=== PATIENT | male | born 1980 | race Caucasian/White ===

== ENCOUNTER 2023-09-28 | Outpatient (REF) | payer MEDICAID, SELFPAY | END 2023-09-28 00:01 | disposition home or self-care (01) | LOC: HO.HHCLNP | PROVIDERS: Visit Provider Family Medicine | DX: R31.9 Hematuria, unspecified (principal) | CPT/HCPCS: 87086 ==

== ENCOUNTER 2023-11-07 01:53 | Emergency (ER) | payer MEDICAID, SELFPAY ==
--- NOTE | 2023-11-07 | ECG_ITS ---
Test Reason : CHEST PX Blood Pressure : / mmHG Vent. Rate : 078 BPM Atrial Rate : 078 BPM P-R Int : 152 ms QRS Dur : 086 ms QT Int : 392 ms P-R-T Axes : 056 046 039 degrees QTc Int : 446 ms Normal sinus rhythm Normal ECG When compared with ECG of 07-OCT-2011 01:04, Sinus rhythm has replaced Ectopic atrial rhythm T wave inversion no longer evident in Inferior leads Referred By: Generic ED Physician Electronically Signed By:MAYRA PEREZ
--- NOTE | ~2023-11-07 | XR_ITS ---
EXAMINATION: XR CHEST CLINICAL INFORMATION: Chest pain COMPARISON: None available. TECHNIQUE: 2 views of the chest were obtained. FINDINGS: The lungs are clear with no focal consolidation. No evidence of pneumothorax, pulmonary edema, or pleural effusions. The cardiomediastinal silhouette is unremarkable. No acute osseous findings. XR/XR chest 2V IMPRESSION: No acute cardiopulmonary findings.
[2023-11-07 02:05] VITALS: BP 139/75; PULSE 82; RESP 18; TEMP 36.6; O2SAT 97; BMI 28.1
[2023-11-07 02:11] LABS: MANUAL DIFF FLAG NO
[2023-11-07 02:13] LABS: Basophils Absolute Auto 0.1 X10*3/uL (0.0-0.2); Basophils Percent Auto 0.5 % (0-2); Eosinophils Absolute Auto 0.1 X10*3/uL (0.0-0.4); Eosinophils Percent Auto 1.1 % (0-4); Hematocrit 41.7 % (42.0-52.0); Hemoglobin 14.1 g/dl (14.0-18.0); Imm Gran Abs Auto 0.05 X10*3/uL (0.00-0.03); Imm Gran Pct Auto 0.4 % (0.0-0.4); Lymphocytes Absolute Auto 2.7 X10*3/uL (1.2-4.9); Lymphocytes Percent Auto 21.2 % (20-40); Mean Corpuscular HGB Conc 33.8 g/dl (31.0-36.0); Mean Corpuscular Hemoglobin 29.4 pg (27.0-33.0); Mean Corpuscular Volume 87.1 fL (80.0-98.0); Mean Platelet Volume 10.1 fL (9.4-12.4); Monocytes Absolute Auto 0.7 X10*3/uL (0.1-1.2); Monocytes Percent Auto 5.8 % (2-11); Platelet Count 249 X10*3/uL (160-400); Red Blood Count 4.79 X10*6/uL (4.60-5.80); Red Cell Distribution Width 12.6 % (11.0-16.0); White Blood Count 12.7 X10*3/uL (4.8-10.8)
[2023-11-07 02:33] LABS: Troponin-I High Sensitivity < 2.7 ng/L (<3.5-35.0)
[2023-11-07 02:41] LABS: Alanine Aminotransferase 17 U/L (0-40); Albumin Level 4.4 g/dL (3.5-5.0); Alkaline Phosphatase 75 U/L (39-117); Anion Gap 15 (12-20); Aspartate Amino Transferase 23 U/L (5-37); Bilirubin Total 0.6 mg/dL (0.0-1.0); Blood Urea Nitrogen 13 mg/dL (9-16); Calcium 9.6 mg/dL (8.4-10.2); Carbon Dioxide 24 mmol/L (22-29); Chloride 108 mmol/L (96-108); Estimated Glomerular Filt Rate > 60; Glucose Random 93 mg/dL (60-115); Potassium 3.6 mmol/L (3.3-5.1); Sodium 143 mmol/L (135-145); Total Protein 7.3 g/dL (6.5-8.0)
[2023-11-07 07:07] VITALS: BP 119/79; PULSE 64; RESP 20; TEMP 36.5; O2SAT 98
--- NOTE | 2023-11-07 08:26 | PC.NURSE ---
Repeat troponin collected per EDTA and sent to lab. Pt states he called to make a complaint and called a law firm regarding his experience here. Pt also states that he will be leaving shortly.
[2023-11-07 08:58] LABS: Troponin-I High Sensitivity < 2.7 ng/L (<3.5-35.0)
== END 2023-11-07 09:19 | disposition left against medical advice (07) ==
PROVIDERS: Emergency Provider Emergency Medicine
DX: R07.9 Chest pain, unspecified (principal); Z53.21 Procedure and treatment not carried out due to patient leaving prior to being seen by health care provider
CPT/HCPCS: 36415; 71046; 80053; 84484; 85025; 93005; 99281; 99283

== ENCOUNTER → 2023-11-07 01:56 | Outpatient (BNV) | payer MEDICAID, SELFPAY | PROVIDERS: Emergency Provider Emergency Medicine; Visit Provider Internal Medicine | DX: R07.9 Chest pain, unspecified (principal) | CPT/HCPCS: 93010 ==

== ENCOUNTER 2023-12-27 01:14 | Emergency (ER) | payer MEDICAID, SELFPAY ==
[2023-12-27 01:18] VITALS: BP 127/73; PULSE 85; RESP 18; TEMP 36.4; O2SAT 96; BMI 28.2
--- NOTE | 2023-12-27 01:26 | ED_ITS ---
HPI - Back Pain/Injury General Chief Complaint: Back Pain/Injury Stated Complaint: Upper Back Pain Time Seen by Provider: 12/27/23 01:25 Source: patient Mode of arrival: ambulatory Limitations: no limitations History of Present Illness ED Provider: MARYLU MCCRAY Narrative: 43 yo male healthy hx of low back pain not on thinners was at work lifting 40lb boxes over his head for 1 hour now has pain and pinching in upper back no numbness, weakness no other injury. back is tight MD elicited complaint: back pain and back injury Pertinent past history: prior back pain Onset (ago): hour(s) (1) Timing: constant Severity: moderate Similar Symptoms Previously: No Quality: burning, sharp and dull Location: thoracic spine (lower cervical ) Radiation: none Exacerbating factors: movement Relieving factors: none Context: while lifting Associated symptoms: denies other symptoms Work related injury: Yes Related Data Previous Rx's ?Medication ?Instructions ?Recorded cyclobenzaprine 10 mg tablet 10 mg PO TID PRN muscle spasm #20 12/27/23 tabs lidocaine 5 % topical patch 1 patch topical DAILY #30 ea 12/27/23 Allergies Allergy/AdvReac Type Severity Reaction Status Date / Time No Known Allergies Allergy Verified 12/27/23 01:19 Review of Systems Review of Systems: Constitutional : No Weight loss, No Fever, No Chills, ENT/Mouth : No Hearing loss, No Ear Pain, No Nasal Congestion, No Sinus Pain, No Hoarseness, No sore throat, No Rhinorrhea, No Swallowing Difficulty Cardiovascular : No Chest Pain, No SOB Respiratory : No Cough, No Dyspnea Gastrointestinal : No Nausea, No Vomiting, No Diarrhea, No abdominal Pain, No Hematochezia, No Melena Genitourinary : No Dysuria, No Urinary Frequency, No Hematuria, No Urinary Incontinence, Musculoskeletal : positive back pain Skin : No Skin Lesions, No rash Neuro : No Weakness, No Numbness, No Paresthesias, no loss of bowel or bladder incontinence, no saddle anesthesia all other systems reviewed and are negative [facility] Past Medical History Attestation statement: The following information was validated with the patient. Source: old records reviewed Medical History Low back pain Social History Social History (Updated 12/27/23 @ 01:29 by Rianna Marylu, DO) Patient Tobacco Use Status: Tobacco use Unknown Physical Exam Vital Signs: Vital Signs: Last Vital Signs Temp 97.6 F 12/27/23 01:18 Pulse 85 12/27/23 01:18 Resp 18 12/27/23 01:18 BP 127/73 12/27/23 01:18 Pulse Ox 96 12/27/23 01:18 O2 Del Method Room Air 12/27/23 01:18 BMI result Body Mass Index 28.2 Appearance: Alert. Oriented X3. No acute distress. Eyes: Pupils equal, round and reactive to light. ENT: Pharynx normal. Neck: Normal inspection. Neck supple. Back: upper thoracic spasm - both UE NV intact SILT and 2+ radial pulse good development and housing director CVS: Normal heart rate and rhythm. Pulses normal. Respiratory: No respiratory distress. Breath sounds normal. Abdomen: Soft and nontender. Skin: Skin warm and dry. Normal skin color. Normal skin turgor. Extremities: No lower extremity edema. Neuro: Oriented X 3. No motor deficit. No sensory deficit. Medical Decision Making Medical Decision Making MDM Narrative: 43 yo male with pinching and pain in middle of thoracic back at this time NV intact no midline ttp or step offs will start on NSAIDs and flexeril doubt fracture seems spasm and strain. Not toxic. Differential Diagnosis Differential Diagnoses: The differential diagnosis associated with the presentation includes strain, spasm External Record Review External record reviewed: Outpatient record Prescription Management I considered prescription management with: Pain Medication and Other Discharge Plan Discharge Clinical Impression: Cervical muscle strain Qualifiers: Encounter type: initial encounter Qualified Code(s): S16.1XXA - Strain of muscle, fascia and tendon at neck level, initial encounter Patient Disposition: Home, Self-Care Instructions: Cervical Strain (ED) Additional Instructions: return for numbness, weakness, cold blue hands or any other concerns alternate tylenol and motrin for pain Prescriptions: New cyclobenzaprine 10 mg tablet 10 mg PO TID PRN (Reason: muscle spasm) Qty: 20 0RF lidocaine 5 % adhesive patch,medicated 1 patch topical DAILY Qty: 30 0RF Rx Instructions: leave on most painful area for up to 12 hrs Stand Alone Forms: Work/School Release Print Language: Pakistani
[2023-12-27] MEDS: Cyclobenzaprine HCl 10 MG TABLET PO (01:50)
[2023-12-27] MEDS: Lidocaine 4 % Patch ADH..PATCH 1 PATCH TRANSDERMA (01:50)
[2023-12-27] MEDS: Ibuprofen 600 MG TABLET PO (01:50)
[2023-12-27 02:39] VITALS: BP 136/78; PULSE 68; RESP 18; TEMP 36.8; O2SAT 99
== END 2023-12-27 01:55 | disposition home or self-care (01) ==
PROVIDERS: Emergency Provider Emergency Medicine
DX: M54.2 Cervicalgia (principal); M54.6 Pain in thoracic spine
CPT/HCPCS: 99283

== ENCOUNTER 2024-07-07 23:38 | Emergency (ER) | payer MEDICAID, SELFPAY ==
--- NOTE | ~2024-07-07 | XR_ITS ---
CLINICAL HISTORY: fall, Lt ankle pain 3 views left ankle Comparison: None Findings: There is no fracture or dislocation. Joint spaces appear normal. Impression: Unremarkable left ankle radiographs. This document has been electronically signed by: Pacheco Mcmillan MD on 07/08/2024 01:21:49
--- NOTE | ~2024-07-07 | XR_ITS ---
CLINICAL HISTORY: fall, low back pain tenderness 3 views lumbar spine Comparison: 09/23/2016 11:20 AM EDT: CR: LUMBAR SPINE 2TO 3 [id number] (10:20 AM CDT) Findings: Alignment is normal. Vertebral body heights are normal. No fracture is seen. There is mild L5-S1 degenerative disc disease. Impression: No acute findings. This document has been electronically signed by: Pacheco Mcmillan MD on 07/08/2024 01:39:01
[2024-07-07 23:45] VITALS: BP 128/80; PULSE 94; RESP 16; TEMP 36.6; O2SAT 97; BMI 33.0
--- NOTE | 2024-07-08 00:19 | ED_ITS ---
HPI - General Adult General Chief complaint: Back Pain/Injury Stated complaint: lower back pain Time Seen by Provider: 07/08/24 00:19 History of Present Illness ED Provider: Ar MCCRAY narrative: The patient is a 44-year-old male who was walking on a sidewalk when he slipped on ice. He says that at 1st he fell forward and twisted his left ankle and struck his right forehead. He says he did not fall all the way onto the ground however. He tried to push himself up but then fell backwards onto his buttocks and injured his back. He had no loss of consciousness. He has had no nausea or vomiting. He does not have any significant amount of pain with moving his neck and he does not think he significantly injured his neck. He has no numbness, tingling, burning in his extremities. His chief complaint is in his low back. His secondary complaint is his left ankle. His other complaint is some soft tissue swelling to the right temporal region where he hit his head. Related Data Previous Rx's ?Medication ?Instructions ?Recorded cyclobenzaprine 10 mg tablet 10 mg PO TID PRN muscle spasm #20 12/27/23 tabs lidocaine 5 % topical patch 1 patch topical DAILY #30 ea 12/27/23 ibuprofen 400 mg tablet 400 mg PO Q6H PRN pain #14 tabs 07/08/24 Allergies Allergy/AdvReac Type Severity Reaction Status Date / Time opium poppy Allergy Severe Anaphylaxis Verified 07/07/24 23:52 Review of Systems Review of Systems: Yes all other systems are reviewed and are negative [facility] Past Medical History Medical History Low back pain Social History Social History (Updated 12/27/23 @ 01:29 by Rianna Valero DO) Patient Tobacco Use Status: Tobacco use Unknown Advance Directives: No Advance Directives Information Provided: No Do you have a plan to hurt others: No Plan Physical Exam ED Vital Signs: Vital Signs - 24 hr 07/07/24 23:45 Temperature 97.9 F Pulse Rate 94 Respiratory Rate 16 Blood Pressure 128/80 Pulse Oximetry 97 Oxygen Delivery Method Room Air BMI result Body Mass Index 33.0 Const Other: The patient is awake and alert. He looks mildly uncomfortable. He does not seem in acute distress. HENMT Other: There is an area of soft tissue swelling near the anterior portion of the right temporal fossa. Skin is intact. No raccoon eyes. No downing sign. No hemotympanum. Eyes General: appearance normal, both eyes and all related structures Alignment and Position: alignment normal Eyelids: Yes eyelids normal Conjunctivae: conjunctivae normal Sclerae: sclerae normal Pupils: Equal, round and reactive pupils present EOM: EOMs intact bilaterally Neck Other: No significant posterior C-spine tenderness. Moving his neck with a good range of motion without significant discomfort. His C-spine is clinically clear. Resp Effort & Inspection: normal respiratory effort Auscultation: clear to auscultation bilaterally Cardio Rate: regular rate Rhythm: regular rhythm Heart sounds: S1 normal heart sound present and S2 normal heart sound present GI Other: Abdomen is soft and nontender Skin Other: There is a small area of soft tissue swelling to the right lateral forehead at the anterior portion of the right temporal fossa. Skin is intact. No ecchymotic skin changes. The skin of the left ankle is not significantly swollen or discolored. Neuro Other: The patient is awake and alert with a normal mental status. Cranial nerves 2-12 are intact. He has normal strength and sensation in his extremities. Cranial nerves: Yes Equal, round and reactive pupils present Extrem Other: The patient has a mild generalized tenderness to the left ankle which is maximal over the lateral malleolus. No gross deformity. Medications Administered Discontinued Medications Generic Name Dose Route Start Last Admin Trade Name Freq PRN Reason Stop Dose Admin Ketorolac Tromethamine 30 mg 07/08/24 00:35 07/08/24 00:42 Ketorolac Tromethamine 30 Mg/Ml Vial IM 07/08/24 00:36 30 mg ONCE ONE Administration Medical Decision Making Medical Decision Making [facility] Narrative: The patient presents for evaluation of injuries he sustained when he slipped on an icy sidewalk. He says he 1st fell forward landing on his hands but twisting his left ankle and also hitting his right forehead. He then tried to push himself upright but then fell backward landing on his buttocks injuring his lower back. He has a negative ankle x-ray. Unremarkable lumbar x-ray. He was given a dose of IM ketorolac for pain. I explained to the patient that he does not seem to have any lumbar fractures. Additionally I explained he does not have an ankle fracture but probably has a mild ankle sprain. He was offered an Aircast and he was offered crutches but he does not wish to have any these devices. He will be advised to rest and take it easy and stay off his feet. Discharge Plan Discharge Clinical Impression: Lumbar back sprain, Mild sprain of left ankle, Contusion of forehead, Fall Patient Disposition: Home, Self-Care Instructions: Ankle Sprain (ED), Low Back Strain (ED) Additional Instructions: Please try to rest and take it easy for the next several days. As much as you can try to stay off your feet and elevate your left leg. Using an ice pack to your left ankle for about 5 or 10 minute several times a day may be helpful. Use ibuprofen and acetaminophen as needed for pain. Please follow up with your regular doctor next week. Return to the emergency room if significantly worse. Prescriptions: New ibuprofen 400 mg tablet 400 mg PO Q6H PRN (Reason: pain) Qty: 14 0RF No Action cyclobenzaprine 10 mg tablet 10 mg PO TID PRN (Reason: muscle spasm) Qty: 20 0RF lidocaine 5 % adhesive patch,medicated 1 patch topical DAILY Qty: 30 0RF Rx Instructions: leave on most painful area for up to 12 hrs Referrals: [facility] [Provider Group] (Fall, forehead contusion, back strain, mild ankle sprain) Print Language: Irish
[2024-07-08] MEDS: Ketorolac Tromethamine 30 MG/ML VIAL IM (00:42)
--- OUTSIDE RECORDS SUMMARY | 2024-07-08 00:43 | XMS_ITS | Encounter Summary ---
Author Organization [employer] Address [address] [place] [address] Care Team Providers Care Tire Room Supervisor Name Role Phone Radha Weller MD Primary Care Provider + Fay Hensley MD Primary Care Provide r Encounter Details Date Type Department Care Team ([facility] st Contact Info) Description 06/09/2023 Orders [facility] Health Information Management [address] [place] [address] Radha Weller MD [address] [place] [address] Social History Tobacco Use Types Packs/Day Years Used Date Smoking Tobacco: Never Passive Smoke Exposure: Never Smokeless Tobacco: Never Alcohol Use Standard Drinks/Week Comments Never 0 (1 standard drink = 0.6 oz pur e alcohol) Sex and Gender Information Value Date Recorded Sex Assigned at Male 04/06/2022 10:17 AM EDT Legal Sex Male 10:17 AM EDT Gender Identity Male 04/06/2022 10:17 AM EDT Sexual Orientation Straight 04/06/2022 10 :17 AM EDT documented as of this encounter Plan of Treatment Not on file documented as of this encounter Visit Diagnoses Not on filedocumented in this encounter Care Teams Tire Room Supervisor Relationship Specialty Start Date End Date Radha Weller MD [address] [place] [id number] PCP - General Family Medicine 05/18/16 10/25/23 Fay Hensley MD [address] [place] [address] PCP - General Internal Medicine 10/26/23 documented as of this encounter
--- OUTSIDE RECORDS SUMMARY | 2024-07-08 00:43 | XMS_ITS | Clinical Summary ---
Author Organization [employer] Address [address] [place] [address] Care Team Providers Care Sales Office Administrator Name Role Phone Fay Hensley MD Primary Care Provide r Allergies No known active allergies Medications Respiratory Therapy Supplies (Nebulizer/Tubin g/Mouthpiece) kitIndications:M oderate persistent asthma without complication Use with nebulizer machine for albuterol 1 kit 1 2 Active Nebulizer miscIndications: Moderate persistent asthma without complication Use with albuterol every 4-6 hours as needed 1 each 2 Active albuterol 0.63 MG/3ML nebulizer solutionIndicati ons:Moderate persistent asthma with acute exacerbation Take 3 mL (0.63 mg) by nebulization every 6 (six) hours if needed for wheezing. 75 mL 11 3 Active albuterol 108 (90 Base) MCG/ACT inhalerIndicatio ns:Moderate persistent asthma with acute exacerbation Inhale 2 puffs every 4 (four) hours if needed for wheezing. 18 g 11 3 Active Active Problems Problem Noted Date Diagnosed Date Anxiety about health 10/11/2023 Assessment & Plan (10/11/2023 12:41 PM EDT): Expresses concern to resolve these issues that he links to pesticide exposure in the past and became agitated and verbally threatening. He declined consult with counselor to help him with this anxiety so that I could get more information about his health conditions. He didn't want to give me a release of information to obtain previous tests and evaluations that have been done at the hosptials/clinics in the past, he states that I should look in the internet (EHR? ). He refused to give me his state trooper's information, I explained that I could probably find more specific information about his chief complaint and work it out from there. I suggested that he could talk to his state trooper abut this specific round up specialist and do it on his side while I was working out all his complaints or would obtain more information from previous w/u to do a referral to specific specialist. Patient became significantly agitated and verbally threatening me (that he will report me or garth me) as I didn't comply with his request, again, without specifics about his condition. He expressed his frustration at not getting his request approved at this time and tells me that he wants to see someone more competent. Team nurse supervisor fiberglass boat assembly is called to further determine POC and future appoitments. Hemoptysis 10/11/2023 Assessment & Plan (10/11/2023 12:46 PM EDT): A previous CXR on 2018 showed low lung volumes, otherwise normal, no report of TB testing. I need further infor from previous records. Patient refused to provide CAROLE form. Needs further evaluation, patient declines for further testing. Weight loss 10/11/2023 Assessment & Plan (10/11/2023 12:53 PM EDT): He had lost about 15 lb within the past 6-7 m, but it seems that he's gaining them again for the past few weeks. FU weight in future visit. Hematuria 10/11/2023 Assessment & Plan (10/11/2023 12:46 PM EDT): Present on previous UA, needs urine cytology and renal imaging. I need further infor from previous records. Patient refused to provide CAROLE form. Needs further evaluation, patient declines for further testing. Gastrointestinal hemorrhage with melena 10/11/19 Assessment & Plan (10/11/2023 12:54 PM EDT): Unable to do a full exam today. I need further infor from previous records. Patient refused to provide CAROLE form. Needs further evaluation, patient declines for further testing. Elevated blood pressure reading 10/11/2023 Assessment & Plan (10/11/2023 12:56 PM EDT): No hx in the past. Patient states that it is related to current anxiety state, declined a second reading in the mid of visit, declined further testing including UA, EKG. FU at next visit, Will obtain previous records. Dyspnea 06/03/2023 06/03/2023 Microscopic hematuria 06/03/2023 06/03/2023 Primary insomnia 06/03/2023 06/03/2023 Chronic low back pain 08/12/2016 06/03/2023 Posttraumatic stress disorder 08/12/2016 Substance abuse 08/12/2016 06/03/2023 Anxiety state 11/17/2011 06/03/2023 Asthma 11/17/2011 06/03/2023 Contact dermatitis 11/17/2011 06/03/2023 Immunizations Name Administration Dates Next Due DTP 12/05/1986, 6,11/06/1983,1982,1982 Hep B, Adolescent or Pediatric 04/02/1998,1996,01/10/1997 Influenza, IIV3, injectable 04/19/1998 Influenza, Split (incl. angely fied surface antigen) 06/15/2013,04/19/1998 Eric SARS-CoV-2 Vaccination 10/18/2020 MMR 03/11/1994,11/06/1983 OPV 12/05/1986, 6,11/06/1983,1982,1982 Td (adult), 5 Lf tetanus tox oid, preservative free, adsorbed 03/31/1996 Tdap 06/03/2014 Social History Tobacco Use Types Packs/Day Years Used Date Smoking Tobacco: Former Cigarettes Passive Smoke Exposure: Past Smokeless Tobacco: Never Tobacco Cessation:Counseling Given: Not Answered Alcohol Use Standard Drinks/Week Comments Never 0 (1 standard drink = 0.6 oz pur e alcohol) Alcohol Answer Date Recorded Frequency of Alcohol Consumption Not on file 10/07/2023 Average Number of Drinks Not on file 024 Frequency of Binge Drinking Not on file 07/2023 Score 0 10/07/2023 Depression Answer Date Recorded Patient Health Questionnaire-9 Score 7 10/07/2023 Patient Health Questionnaire-9 Score 7 10/07/2023 Last PHQ-9: Questionnaire Data Not on file 0 10/07/2023 Housing Stability Answer Date Recorded What is your housing situation today? I have romero morocho 10/07/[address] you li ve. Do you have problems with any of the following? I am not sure 10/07/2023 Food Insecurity Answer Date Recorded Within the past 12 months, y ou worried that your food would run out before you got money to buy more: Sometimes True 2023 Within the past 12 months,th e food you bought just didn't last and you didn't have enough money to get more: Sometimes True 10/07/2023 Transportation Answer Date Recorded In the past 12 months, has l ack of transportation kept you from medical appts, meetings, work or from getting things needed for daily living? Yes, it has kept me from medical appointments or getting medications. 10/07/2023 Utilities Answer Date Recorded In the past 12 months, has t he electric, gas, oil or water company threatened to shut off services in your home? I am not sure 10/07/2023 Depression Answer Date Recorded Patient Health Questionnaire-2 Score 2 10/07/2023 Sex and Gender Information Value Date Recorded Sex Assigned at Male 04/06/2022 10:17 AM EDT Legal Sex Male 10:17 AM EDT Gender Identity Male 04/06/2022 10:17 AM EDT Sexual Orientation Straight 04/06/2022 10 :17 AM EDT Last Filed Vital Signs Vital Sign Reading Time Taken Comments Blood Pressure 114/87 10/25/2023 5:25 PM EDT Pulse 75 10/25/2023 5:25 PM EDT Temperature 36.8 ??C (98.2 ??F) 10/25/2023 5:25 PM ED T Respiratory Rate 20 10/25/2023 5:25 PM EDT Oxygen Saturation 97% 10/25/2023 5:25 PM EDT Inhaled Oxygen Concentration - - Weight 87.8 kg (193 lb 9.6 oz) 10/25/2023 5:25 P M EDT Height 177.8 cm (5' 10 ) 10/25/2023 5:25 PM EDT Body Mass Index 27.78 10/25/2023 5:25 PM EDT Plan of Treatment Health Maintenance Due Date Last Done Comments Lipid Panel 1982 Family Planning (PISQ) 1997 Pneumococcal Vaccine: Pediatrics (0 to 5 Years) and At-Risk Patients (6 to 49) Years) (1 of 2 - PCV) 2001 COVID-19 Vaccine (2 - season) 2024 10/18/2020 Influenza Vaccine (#1) 2024 4, 04/19/1998, 04/19/1998 DTaP/Tdap/Td Vaccines (7 - Td or Tdap) 06/03/2024 06/03/2014, 03/31/1996, 12/05/1986, Additional history exists Alcohol/Substance Use Screening 10/06/2024 10/07/2023 Depression Screening 10/06/2024 10/07/2023, 10/07/19 24 SDOH Screening 10/06/2024 10/07/2023 Tobacco Screening 10/24/2024 10/25/2023 Zoster Vaccines (1 of 2) 2032 RSV Patients and Patients Aged 60 years or older (1 - 1-dose 75+ series) 2057 IPV Vaccines Completed 12/05/1986, 06/1985, 11/06/1983, Additional history exists Hepatitis B Vaccines Completed 04/02/1998, 03/12/1997, 01/10/1997 HIV Screening Completed 01/13/2023 Hepatitis C Screening Completed 01/13/2023 HIB Vaccines Aged Out No longer eligi ble based on patient's age to complete this topic HPV Vaccines Aged Out No longer eligi ble based on patient's age to complete this topic Hepatitis A Vaccines Aged Out No long er eligible based on patient's age to complete this topic Meningococcal Vaccine Aged Out No ventura adeola eligible based on patient's age to complete this topic RSV under 20 months Aged Out No longe r eligible based on patient's age to complete this topic Rotavirus Vaccines Aged Out No longer eligible based on patient's age to complete this topic Procedures Procedure Name Priority Date/Time Associated Diagnosis Comments HM HEPATITIS C ANTIBODY Routine 01/13/2023 HM HIV 1/2 ANTIGEN AND ANTIBODY Routine 01/13/2023 from Last 3 Months or Most Recently Relevant to Health Maintenance Results * HM Hepatitis C Antibody (01/13/2023) Hepatitis C Antibody Nonreactive Blood 01/13/2023 Radha Weller MD HEALTH MAINTENANCE Final Result * HM HIV 1/2 Antigen and Antibody (01/13/2023) HIV Ag/Ab Nonreactive 01/13/2023 Radha Weller MD HEALTH MAINTENANCE Final Result from Last 3 Months or Most Recently Relevant to Health Maintenance Insurance [facility] C3 Care Teams Sales Office Administrator Relationship Specialty Start Date End Date Fay Hensley MD [address] [place] [id number] PCP - General Internal Medicine 10/26/23
[2024-07-08 01:57] VITALS: BP 149/89; PULSE 78; RESP 16; TEMP 36.4; O2SAT 96
[2024-07-08 01:59] VITALS: BP 149/89; PULSE 78; RESP 16; TEMP 36.4; O2SAT 96
== END 2024-07-08 02:00 | disposition home or self-care (01) ==
PROVIDERS: Emergency Provider Emergency Medicine
DX: S33.5XXA Sprain of ligaments of lumbar spine, initial encounter (principal); S93.402A Sprain of unspecified ligament of left ankle, initial encounter; S00.83XA Contusion of other part of head, initial encounter; W00.0XXA Fall on same level due to ice and snow, initial encounter; Y93.01 Activity, walking, marching and hiking; Y92.480 Sidewalk as the place of occurrence of the external cause; Y99.9 Unspecified external cause status
CPT/HCPCS: 72100; 73610; 96372; 99284; J1885

== ENCOUNTER → 2024-07-08 00:35 | Outpatient (BNV) | payer MEDICAID, SELFPAY | PROVIDERS: Emergency Provider Emergency Medicine; Visit Provider Radiology Diagnostic Radiology | DX: M54.50 Low back pain, unspecified (principal); M25.572 Pain in left ankle and joints of left foot | CPT/HCPCS: 72100; 73610 ==

== ENCOUNTER 2024-09-12 09:22 | Outpatient (AMB) | payer MEDICAID, SELFPAY ==
[2024-09-12 09:23] VITALS: BP 133/79; PULSE 61; O2SAT 97; BMI 33.8
--- NOTE | 2024-09-12 09:23 | MHC.OFFVIS ---
Vital Signs 09/12/24 09:23 Height 5 ft 10 in Weight 235 lb 7.259 oz BMI 33.8 BP 133/79 Blood Pressure Location Lt brachial Position Sitting Pulse 61 Pulse Source Pulse Oximeter Pulse Oximetry (%) 97 Oxygen Delivery Method Room Air Intake Visit Reasons: Lipoma~ scalp, upper extremity Intake Note: Patient referred by pcp Dr. Sutherland for ? lipoma on scalp. Pt states he has one on his scalp,neck,and right arm. Patient c/o:pain on his scalp Allergies opium poppy Allergy (Severe, Verified 09/12/24 09:25) Anaphylaxis HPI Comments Details: Patient presents here with his mother. He has 3 lesions/lumps he would like to have evaluated. These involved 1. Right forehead 2. Right posterior triangle of the neck 3. Right volar aspect of the forearm. He has had these lumps/lesions indeterminate time. They are increasing in size, become more symptomatic. He would like to have them removed. He has no such lesions elsewhere. Chart was reviewed and patient evaluated. Patient has history of exposure to ?round up? and this carried us if these lesions are related to this. Patient denies any fever, chills, night sweats, weight loss. No prior radiation exposure. [facility] Medical History Low back pain Social History Patient Tobacco Use Status: Tobacco use Unknown Physical Exam Vital Signs: Last Vital Signs Pulse 61 09/12/24 09:23 BP 133/79 09/12/24 09:23 Pulse Ox 97 09/12/24 09:23 Oxygen Delivery Method Room Air 09/12/24 09:23 BMI result Body Mass Index 33.8 HEENT Other: 4 x 3 cm lipoma involving right upper lateral forehead. No other submandibular or anterior cervical adenopathy appreciated bilaterally. Patient has a roughly 2 x 1 cm posterior triangle deeply situated mass consistent with a lymph node. Chest Other: Chest sounds bilaterally, HS 1 in 2 GI Other: Abdomen is soft, benign. No groin adenopathy Extrem Other: Patient was a 3 x 2 cm mid right volar aspect forearm lipoma. Assessment & Plan Assessment & Plan (1) Multiple lipomas: Code(s): D17.9 - Benign lipomatous neoplasm, unspecified Category: Surgical (2) Lymph nodes enlarged: Code(s): R59.9 - Enlarged lymph nodes, unspecified Category: Surgical Plan Because of the number, size, location and depth of these various lesions, my current recommendation is to arrange for excision in an ambulatory surgical setting. Risks, benefits, alternatives of excision of the 3 masses were reviewed with the patient and included but not limited to bleeding, infection, recurrence, numbness, pain, scarring the patient wished to proceed. All questions answered. Arrangements were made for this on a day which is convenient for him. Medications: Discontinued cyclobenzaprine Discontinued Reason: Patient no longer taking 10 mg PO TID PRN 20 tabs 0RF muscle spasm lidocaine 5% leave on most painful area for up to 12 hrs Discontinued Reason: Patient no longer taking 1 patch topical DAILY 30 ea 0RF Coding Level of Care Code New Pt Level 5 (98765) Diagnoses Multiple lipomas D17.9 Lymph nodes enlarged R59.9
--- OUTSIDE RECORDS SUMMARY | 2024-09-12 10:27 | XMS_ITS | Clinical Summary ---
Author Organization [facility] it Address [address] [place] [address] Care Team Providers Care Director Mobile Name Role Phone Aruna Chowdary MD Primary Care Provider [phone]- [phone] Social History Tobacco Use Types Packs/Day Years Used Date Smoking Tobacco: Some Days Smokeless Tobacco: Never Alcohol Use Standard Drinks/Week Comments Yes 0 (1 standard drink = 0.6 oz pur e alcohol) Sex and Gender Information Value Date Recorded Sex Assigned at Not on file Legal Sex Male 8:27 AM EST Gender Identity Not on file Sexual Orientation Not on file Obstetrics History Plan of Treatment Health Maintenance Due Date Last Done Comments DTaP,Tdap,and Td Vaccines (1 - Tdap) 2001 Hepatitis B Vaccines (1 of 3 - 19+ 3-dose series) 2001 Pneumococcal Vaccine: Pediat rics (0 to 5 Years) and At-Risk Patients (6 to 64 Years) (1 of 2 - PCV) 2001 Cholesterol Screening (Lipid Panel) 05/10/2022 Depression Screening 05/10/2022 HIV Screening 05/10/2022 Hepatitis C Screening 05/10/2022 Social Influencers of Health Screening 05/10/2022 COVID-19 Vaccine ( - 2023-2 5 season) 2024 Influenza Vaccine (Season Ended) 2025 HIB Vaccines Aged Out No longer eligi ble based on patient's age to complete this topic HPV Vaccines Aged Out No longer eligi ble based on patient's age to complete this topic Hepatitis A Vaccines Aged Out No long er eligible based on patient's age to complete this topic IPV Vaccines Aged Out No longer eligi ble based on patient's age to complete this topic MMR Vaccines Aged Out No longer eligi ble based on patient's age to complete this topic Meningococcal ACWY Vaccine Aged Out N o longer eligible based on patient's age to complete this topic Meningococcal B Vaccine Aged Out No l onger eligible based on patient's age to complete this topic RSV Immunization Patients Un pito 20 months Aged Out No longer eligible b ased on patient's age to complete this topic Varicella Vaccines Aged Out No longer eligible based on patient's age to complete this topic Care Teams Director Mobile Relationship Specialty Start Date End Date Aruna Chowdary MD [address] [place] [phone] PCP - General Family Medicine 10/17/18
--- OUTSIDE RECORDS SUMMARY | 2024-09-12 10:28 | XMS_ITS | Clinical Summary ---
Author Organization [employer] Address [address] [place] [address] [address] [place] [address] Care Team Providers Care Nutrition Coordinator Name Role Phone Fay Hensley MD Primary [...] Problems Problem Noted Date Diagnosed Date Anxiety with depression 08/31/2024 Assessment & Plan (09/01/2024 9:39 AM EDT): Patient tells me he follows with a therapist in [facility] and that he also has a psychiatrist but he is not currently on any medications, reports he does not want to be on any medications for mental health at this time Dizziness 08/31/2024 Assessment & Plan (09/01/2024 9:38 AM EDT): Blood work will be ordered today patient will be contacted with results Lipoma of head 08/31/2024 Assessment & Plan (09/01/2024 9:39 AM EDT): Patient reports his labs bothers him a lot, sometimes he feels they are painful he would like for them to be excised and test, he will be referred to surgery Lipoma of neck 08/31/2024 Assessment & Plan (09/01/2024 9:40 AM EDT): Patient reports his labs bothers him a lot, sometimes he feels they are painful he would like for them to be excised and test, he will be referred to surgery Lipoma of upper extremity 08/31/2024 Assessment & Plan (09/01/2024 9:39 AM EDT): Patient reports his labs bothers him a lot, sometimes he feels they are painful he would like for them to be excised and test, he will be referred to surgery Right hand pain 08/31/2024 Assessment & Plan (09/01/2024 9:39 AM EDT): Patient will be referred to hand specialist Anxiety about health 10/11/2023 Assessment & Plan [...] evaluations that have been done at the [facility] in the past, he states that I should look in the internet (EHR? ). He refused to give me his hog raiser's information, I explained that I could probably find more specific information about his chief complaint and work it out from there. I suggested that he could talk to his hog raiser abut this specific round up specialist and [...] see someone more competent. Team nurse supervisor car installations is called to further determine POC and [...] future visit. Hematuria 10/11/2023 Assessment & Plan (09/01/2024 9:38 AM EDT): UA done today confirm hematuria, I will refer patient to urology Assessment & Plan (10/11/2023 12:46 PM EDT): Present on previous UA, needs urine cytology and renal imaging. I need further infor from previous records. Patient refused to provide CAROLE form. Needs further evaluation, patient declines for further testing. Gastrointestinal hemorrhage with melena 10/11/19 24 Assessment & Plan (10/11/2023 12:54 PM EDT): [...] Anxiety state 11/17/2011 06/03/2023 Asthma 11/17/2011 06/03/2023 Assessment & Plan (09/01/2024 9:38 AM EDT): Patient reports stable, continue with same interventions Contact dermatitis 11/17/2011 06/03/2023 Encounters Date Type Department Care Team Description 09/01/[address] [address] Fay Hensley MD Paperwork/Forms (DTA) 08/31/2024 3:30 PM EDT Office Visit [address] [address] Fay Hensley MD Moderate persistent asthma with acute exacerbation (Primary Dx); Hematuria, unspecified type; Chronic midline low back pain with left-sided sciatica; Anxiety with depression; Dizziness; Lipoma of head; Lipoma of neck; Lipoma of right upper extremity; Right hand pain 08/31/2024 Travel 08/22/2024 Patient Outreach [address] [address] Fay Hensley MD Pre-visit Planning ((Unable to reach for PVP screening, LVM)) 08/18/2024 Population Health Risk Score [facility] () Department [address] [place] [phone] Provider, Population Health Generic from Last 3 Months Immunizations Name Administration Dates Next Due DTP 12/05/1986, 6,11/06/1983,1982,1982 Hep B, Adolescent or Pediatric 04/02/1998,1996,01/10/1997 Influenza, IIV3, injectable 04/19/1998 Influenza, Split (incl. angely fied surface antigen) 06/15/2013,04/19/1998 Eric SARS-CoV-2 Vaccination 10/18/2020 MMR 03/11/1994,11/06/1983 OPV, Trivalent 12/05/1986, 6,11/06/1983,1982,1982 Td (adult), 5 Lf tetanus tox oid, preservative free, adsorbed 03/31/1996 Tdap 06/03/2014 Social History Tobacco Use Types Packs/Day Years Used Date Smoking Tobacco: Former Cigarettes Passive Smoke Exposure: Past Smokeless Tobacco: Never Tobacco Cessation:Counseling Given: Not Answered Alcohol Use Standard Drinks/Week Comments Never 0 (1 standard drink = 0.6 oz pur e alcohol) Depression Answer Date Recorded Patient Health Questionnaire-9 Score 24 08/31/2024 Patient Health Questionnaire-9 Score 24 08/31/2024 Last PHQ-9: Questionnaire Data Not on file 0 08/31/2024 Housing Stability Answer Date Recorded What is [...] Answer Date Recorded Patient Health Questionnaire-2 Score 6 08/31/2024 Sex and Gender Information Value Date Recorded Sex Assigned at Male 04/06/2022 10:17 AM EDT Legal Sex Male 10:17 AM EDT Gender Identity Male 04/06/2022 10:17 AM EDT Sexual Orientation Straight 04/06/2022 10 :17 AM EDT Last Filed Vital Signs Vital Sign Reading Time Taken Comments Blood Pressure 131/76 08/31/2024 2:55 PM EDT Pulse 60 08/31/2024 2:55 PM EDT Temperature 36.4 ??C (97.6 ??F) 08/31/2024 2:55 PM ED T Respiratory Rate 20 08/31/2024 2:55 PM EDT Oxygen Saturation 98% 08/31/2024 2:55 PM EDT Inhaled Oxygen Concentration - - Weight 106 kg (234 lb 9.6 oz) 08/31/2024 2:55 PM EDT Height 177.8 cm (5' 10 ) 08/31/2024 2:55 PM EDT Body Mass Index 33.66 08/31/2024 2:55 PM EDT Plan of Treatment Health Maintenance [...] history exists Alcohol/Substance Use Screening 10/06/2024 10/07/2023 SDOH Screening 10/06/2024 10/07/2023 Depression Monitoring (PHQ-9) 03/03/2025 08/31/2024, 08/31/2024 Depression Screening 08/31/2025 08/31/2024, 09/01/19 25 Tobacco Screening 08/31/2025 08/31/2024 Zoster Vaccines (1 of 2) 2032 RSV Patients and Patients Aged 60 years or older (1 - 1-dose 75+ series) 2057 IPV Vaccines Completed 12/05/1986, 02/0 06/1985, 11/06/1983, Additional history exists Hepatitis B [...] Procedure Name Priority Date/Time Associated Diagnosis Comments POCT URINALYSIS DIPSTICK Routine 08/31/2024 3:55 PM EDT Hematuria, unspecified type HM HEPATITIS C ANTIBODY Routine 01/13/2023 HM HIV 1/2 ANTIGEN AND ANTIBODY Routine 01/13/2023 from Last 3 Months or Most Recently Relevant to Health Maintenance Results * (ABNORMAL) POCT Urinalysis (08/31/2024 3:55 PM EDT) Color, UA Yellow Clarity, UA Clear Glucose, UA Negative Bilirubin, UA Negative Ketones, UA Negative Spec Grav, UA 1.025 Blood, UA Positive(A) Negative, None Detected Comment:moderate pH, UA 6.0 Protein, UA Trace Urobilinogen, UA 0.2 Leukocytes, UA Negative Negative, Rare, Trace Nitrite, UA Negative Negative, None Detected Appearance, UA clear Urine 08/31/2024 3:55 PM EDT Fay Dominguez MD POINT OF CARE TEST EN TER/EDIT ORDERABLES Final Result * HM Hepatitis C Antibody (01/13/2023) Hepatitis C Antibody Nonreactive Blood 01/13/2023 Radha Weller MD HEALTH MAINTENANCE Final Result * HM HIV 1/2 Antigen and Antibody (01/13/2023) HIV Ag/Ab Nonreactive 01/13/2023 Radha Weller MD HEALTH MAINTENANCE Final Result from Last 3 Months or Most Recently Relevant to Health Maintenance Insurance [facility] C3 Care Teams Nutrition Coordinator Relationship Specialty Start Date End Date Fay Hensley MD [address] [place] [id number] PCP - General Internal Medicine 10/26/23
--- OUTSIDE RECORDS SUMMARY | 2024-09-12 10:28 | XMS_ITS | Encounter Summary ---
Author Organization [employer] Address [address] [place] [address] [place] [address] Care Team Providers Care Training And Development Project Leader Name Role Phone Radha Weller MD Primary Care Provider + Fay Hensley MD Primary Care Provide r Encounter Details Date Type Department Care Team (Late st Contact Info) Description 06/09/2023 Orders Only [facility] [address] [place] [address] Radha Weller MD [address] [place], [place] [phone] Social History Tobacco Use Types Packs/Day Years [...] on filedocumented in this encounter Care Teams Training And Development Project Leader Relationship Specialty Start Date End Date Radha Weller MD [address] [place] [phone] PCP - General Family Medicine 05/18/16 10/25/23 Fay Hensley MD [address] [place] [address] PCP - General Internal Medicine 10/26/23 documented as of this encounter
== END 2024-09-12 09:34 | disposition home or self-care (01) ==
LOC: HO.HGS 09:22
PROVIDERS: PCP Internal Medicine; Referring Provider Internal Medicine; Visit Provider Surgery
DX: D17.0 Benign lipomatous neoplasm of skin and subcutaneous tissue of head, face and neck (principal); R59.9 Enlarged lymph nodes, unspecified
CPT/HCPCS: 99204

== ENCOUNTER → 2024-09-12 09:22 | Outpatient (BNVA) | payer MEDICAID, SELFPAY | PROVIDERS: PCP Internal Medicine; Referring Provider Internal Medicine; Visit Provider Surgery | DX: R59.9 Enlarged lymph nodes, unspecified (principal); D17.9 Benign lipomatous neoplasm, unspecified | CPT/HCPCS: 99202 ==

== ENCOUNTER 2024-11-06 08:42 | Outpatient (REF) | payer MEDICAID, SELFPAY ==
[2024-11-06 16:38] LABS: Urine Cytology See Pathology rpt
== END 2024-11-06 08:43 | disposition home or self-care (01) ==
LOC: HO.LNP 08:42
PROVIDERS: PCP Internal Medicine; Visit Provider Nurse Practitioner Family
DX: R31.29 Other microscopic hematuria (principal); F12.20 Cannabis dependence, uncomplicated
CPT/HCPCS: 81003; 88112; 99212

== ENCOUNTER 2024-11-06 08:42 | Outpatient (AMB) | payer MEDICAID, SELFPAY ==
--- NOTE | 2024-11-06 09:03 | A.OFFVIS_ITS ---
Intake Visit Reasons: hematuria Intake Note: New Patient presents for initial visit for Hematuria Urology Medications: none Blood Thinner: none Smoker:yes; smoked for 30+yrs, since age 14 Paint Technician Required: No Accompanied by: Unknown Allergies opium poppy Allergy (Severe, Verified 11/06/24 09:51) Anaphylaxis Medication List - Last Reconciled 11/06/24 by SALVADOR Peters albuterol sulfate 90 mcg/actuation 2 puffs inhalation Q4-6H PRN ibuprofen 400 mg PO Q6H PRN trazodone 100 mg PO BEDTIME HPI Comments Details: Abdulaziz is a 44-year-old male patient of Dr. Ena Dominguez who was accompanied by his mom at today's office visit. He has a past medical history of low-back pain. He presents to the office today as a new patient for microscopic hematuria. In discussion with the patient today he discusses having followed up with his PCP at which time recommendations were made for urology referral as patient with a longstanding history of microscopic hematuria in the setting of nicotine dependence, marijuana use, and previous workplace chemical exposure. He reports over 30 year marijuana use of daily smoking. He also reports previously working in [place] and having been exposed to ground up. In office urinalysis results reviewed with the patient and his mom today. Trace microscopic hematuria noted. We did discuss potential causes of microscopic hematuria as well as further workup to include CT urogram and cystoscopy. He otherwise denies any bothersome urinary issues. He does discuss his ongoing issues with various skin issues and will be having upcoming surgical appointment for removal of lumps. All questions were answered. I discussed reasons for blood in the urine may include but are not limited to kidney stones, cancer in the urinary tract, BPH, kidney stone disease or inflammatory conditions of the urinary tract. I have discussed workup to include cystoscopy evaluation. Plan During this consultation, I emphasized the need for diagnostic evaluation of the patient's hematuria. I recommended a CT urogram to examine the kidneys and bladder transparently. The patient is to procure recent imaging records to determine the necessity of further scans due to exposure concerns. A cystoscopy is advised for direct bladder examination, which we discussed at length. We will plan to review these diagnostic results during the follow-up. Patient was informed and verbally consented to the use of an ambient scribe for clinic note documentation during this visit. Discussion Notes The discussion centered on the patient's microscopic hematuria and associated risks due to his smoking history and chemical exposure at a former workplace. I elaborated on the role of smoking in increasing bladder cancer risk. We reviewed the necessity of a CT urogram to identify any abnormalities in the urinary tract, emphasizing careful consideration of cumulative radiation dosage. The importance and nature of a cystoscopy were discussed. The patient was encouraged to collect prior imaging records to ascertain if additional CT imaging is warranted. [facility] Medical History Low back pain Social History Patient Tobacco Use Status: Tobacco use Unknown Review of Systems Const All systems reviewed & are unremarkable except as noted in HPI and below Physical Exam Const General: cooperative, healthy appearing, comfortable, no acute distress, well developed, alert and awake Orientation/consciousness: patient oriented x3 Limitations: no limitations HEENT Head: Yes normal to inspection, Yes normocephalic and Yes atraumatic Ears: hearing grossly normal bilaterally Eyes General: appearance normal, both eyes and all related structures Neck Neck: Yes normal visual inspection and Yes trachea midline Chest Chest palpation & inspection: normal inspection of the chest Resp Effort & Inspection: normal respiratory effort and able to speak in complete sentences Cardio Rate: regular rate GI Inspection: Yes normal to inspection General: Yes no CVA tenderness Back/Spine/Pelvis Back: no CVA tenderness Skin General skin exam: no rashes or lesions noted Neuro General: patient oriented x3 Extrem General: Yes normal to inspection Psych Appearance: grossly normal and well kempt Mental Status: mental status grossly normal Speech and movement: Normal speech and movement present and Clear speech present Affect: normal affect Attitude: cooperative Thought process: Normal thought process present Thought content: Normal thought content present Insight: Fair insight present (Psych) Judgement: Fair judgement present (Psych) Results AMB Urinalysis, Automated UA Leukoctes 0 Jessica/uL Last Edit by Jaylen Bhatiaiel on 11/06/24 09:21 UA Nitrite Negative Last Edit by Jaylen Layne on 11/06/24 09:21 UA Urobilinogen 0.2 mg/dL Last Edit by Jaylen Layne on 11/06/24 09:21 UA Protein 15 mg/dL Last Edit by Jaylen aLyne on 11/06/24 09:21 UA pH 6.0 Last Edit by Jaylen Tillman on 11/06/24 09:21 UA Blood 10 Neri/uL Last Edit by Jaylen Layne on 11/06/24 09:21 UA Specific [place] 1.025 Last Edit by Jaylen Layne on 11/06/24 09:21 UA Ketone Negative Last Edit by Jaylendanica Bhatiaiel on 11/06/24 09:21 UA Bilirubin 0 mg/dL Last Edit by Jaylen Bhatiaiel on 11/06/24 09:21 UA Glucose 0 mg/dL Last Edit by Jaylen Bhatiaiel on 11/06/24 09:21 Results Reviewed Results Reviewed: Laboratory Last Values Urine pH (Auto) 6.0 11/06/24 09:04 Specific [place] (Auto) 1.025 11/06/24 09:04 Urine Protein (Auto) 15 mg/dL 11/06/24 09:04 Glucose (UA)(Auto) 0 mg/dL 11/06/24 09:04 Urine Ketones (Auto) Negative 11/06/24 09:04 Urine Blood (Auto) 10 Neri/uL 11/06/24 09:04 Urine Nitrite (Auto) Negative 11/06/24 09:04 Urine Bilirubin (Auto) 0 mg/dL 11/06/24 09:04 Urine Urobilinogen (Auto) 0.2 mg/dL 11/06/24 09:04 Leukocyte Esterase (Auto) 0 Jessica/uL 11/06/24 09:04 Assessment & Plan Assessment & Plan (1) Microscopic hematuria: Code(s): R31.29 - Other microscopic hematuria Category: Medical (2) Marijuana dependence: Code(s): F12.20 - Cannabis dependence, uncomplicated Category: Medical Plan In office urinalysis results reviewed with the patient today; as noted above; will send for urine cytology. We discussed at length potential causes of microscopic hematuria as well as further workup in risks and benefits of these interventions. He currently denies any bothersome urinary issues. Will obtain CT urogram for further assessment evaluation. BUN and creatinine ordered for imaging. We discussed the importance of limiting/quitting marijuana for overall health and well-being. Follow-up next available in office cystoscopy with imaging and labs to be completed prior; or sooner with any issues, concerns, and or questions. Orders: Orders AMB Urinalysis Automated Today Z13.9 - Encounter for screening, unspecified Urine Cytology Today R31.9 - Hematuria, unspecified Blood Urea Nitrogen Today R31.29 - Other microscopic hematuria Creatinine Today R31.29 - Other microscopic hematuria CT urogram Today F12.20 - Cannabis dependence, uncomplicated, R31.0 - Gross hematuria Patient Instructions: The patient had an opportunity to ask questions regarding the treatment plan. All questions were answered. Physical exam, labs, and imaging were discussed and reviewed in detail. As well as risks, benefits, and discussion of treatment choices. No major barriers to understanding were identified. The patient expressed understanding and agreement with the above treatment plan. The patient was made aware they should contact our office by phone for worsening of their current condition, the appearance of new symptoms, or with any questions or concerns. Compliance is encouraged with any medications and follow up testing that is ordered. It is a privilege to be allowed the opportunity to participate in? your urological care.? Again, if you have any questions or concerns If you have any questions or concerns please do not hesitate to contact me. The office is [phone]. This note is constructed using voice recognition software. While every effort has been made to ensure accuracy quality consultant errors may have been included. Yours sincerely, SALVADOR Peters Coding Level of Care Code New Pt Level 3 (86763) Diagnoses Microscopic hematuria R31.29 Marijuana dependence F12.20
--- OUTSIDE RECORDS SUMMARY | 2024-11-06 09:04 | XMS_ITS | Clinical Summary ---
Author Organization [facility] Address [address] [place] [address] Phone Care Team Providers Care Adolescent Specialist Name Role Phone Aruna Chowdary MD Primary Care Provider +1- [phone] Social History Tobacco Use Types Packs/Day Years [...] Health Maintenance Due Date Last Done Comments Hepatitis A Vaccines (1 of 2 - Risk 2-dose series) 2001 Pneumococcal Vaccine: Pediatrics (0 to 5 Years) and At-Risk Patients (6 to 64 Years) (1 of 2 - PCV) 2001 COVID-19 Vaccine (2 - Eric risk series) 11/15/2020 10/18/2020 Cholesterol Screening (Lipid Panel) 05/10/2022 HIV Screening 05/10/2022 Hepatitis C Screening 05/10/2022 Social Influencers of Health Screening 05/10/2022 DTaP,Tdap,and Td Vaccines (8 - Td or Tdap) 06/03/2024 06/03/2014, 03/31/1996, 12/05/1986, Additional history exists Influenza Vaccine (Season Ended) 2025 06/15/2013, 04/19/1998 Depression Screening 08/31/2025 08/31/2024 IPV Vaccines Completed 12/05/1986, 02/06/1985, 11/06/1983, Additional history exists MMR Vaccines Completed 03/11/1994, 11/06/1983 Hepatitis B Vaccines Completed 04/02/1998, 03/12/1997, 01/10/1997 HIB Vaccines Aged Out No longer eligi [...] to complete this topic RSV Immunization Patients Under 20 months Aged Out No longer eligible based on patient's age to complete this topic Varicella Vaccines Aged Out No longer eligible based on patient's age to complete this topic Insurance MEDICAID - [place] Care Teams Adolescent Specialist Relationship Specialty Start Date End Date Becker, MD Aruna [address] [place] [phone] PCP - General Family Medicine 10/17/18
== END 2024-11-06 10:46 | disposition home or self-care (01) ==
LOC: HO.HUSH 08:43
PROVIDERS: PCP Internal Medicine; Visit Provider Nurse Practitioner Family
DX: R31.29 Other microscopic hematuria (principal); F12.20 Cannabis dependence, uncomplicated; Z13.9 Encounter for screening, unspecified
CPT/HCPCS: 99203

== ENCOUNTER 2024-11-13 13:53 | Outpatient (AMB) | payer MEDICAID, SELFPAY ==
--- NOTE | 2024-11-13 13:55 | MHC.OFFVIS ---
Vital Signs 11/13/24 13:56 Height 5 ft 10 in Weight 227 lb BMI 32.6 BP 148/80 H Blood Pressure Location Rt brachial Position Sitting Pulse 59 Intake Visit Reasons: Mult Lipomas Intake Note: Patient last seen by Dr. Bray for multiple lipomas. Patient reports lipomas on Rt upper lat forehead, Rt post neck, Rt volar forearm. Patient c/o: reports lipomas are painful, enlarging. Senior Housekeeper Required: No Accompanied by: Self / Same As Patient Allergies opium poppy Allergy (Severe, Verified 11/13/24 13:55) Anaphylaxis Medication List - Last Reconciled 11/13/24 by Nathan Patrick MD albuterol sulfate 90 mcg/actuation 2 puffs inhalation Q4-6H PRN ibuprofen 400 mg PO Q6H PRN trazodone 100 mg PO BEDTIME HPI HPI Mult Lipomas: Details: 44-year-old male here for follow-up for multiple lipomas. He had been previously seen by Dr. Bray for a lipoma on the forearm, the forehead and the neck. He was recommended to undergo excision under anesthesia in the operating room He describes discomfort on the lipomas. He does not really feel the lipoma in the right neck posteriorly however. [facility] Medical History Low back pain Social History Patient Tobacco Use Status: Tobacco use Unknown Review of Systems Const Denies chills and Denies fever(s) Card Denies chest pain, Denies dyspnea and Denies dyspnea on exertion Resp Denies cough, Denies dyspnea and Denies dyspnea on exertion GI Denies hematochezia and Denies change in bowel habits Denies hematuria and Denies difficulty urinating Musc Denies back pain and Denies limited range of motion Neuro Denies focal weakness and Denies convulsions Psych Denies depression and Denies mood swings Physical Exam Const General: comfortable and no acute distress Orientation/consciousness: patient oriented x3 HEENT Other: Right forehead with a lipomatous mass about 1.5 cm, well-defined Neck Neck: Yes no lymphadenopathy Resp Auscultation: clear to auscultation bilaterally Cardio Rhythm: regular rhythm GI Palpation (GI): Soft to palpation, nontender and no guarding Neuro General: patient oriented x3 Extrem Other: Lipomatous mass on the forearm proximally, about 1 cm in diameter Assessment & Plan Assessment & Plan (1) Multiple lipomas: Code(s): D17.9 - Benign lipomatous neoplasm, unspecified Category: Surgical Plan: He has a lipoma on the forehead, about 1.5 cm in diameter, and a lipoma in the forearm near the right elbow about a cm in diameter. I could not palpate for the lipoma on the posterior neck laterally at this time. I told him that can excise the lipoma on the forehead and the forearm under local anesthesia. I explained to him the technique of this procedure. I reviewed the risks, benefits, and alternatives. He understands and agrees to proceed This will be done in the office in his next visit. I will order for an ultrasound of the right posterolateral neck down the line to see if we can identify the lipoma. Coding Level of Care Code Est Pt Level 3 (81923) Diagnoses Multiple lipomas D17.9
[2024-11-13 13:56] VITALS: BP 148/80; PULSE 59; BMI 32.6
--- OUTSIDE RECORDS SUMMARY | 2024-11-13 15:46 | XMS_ITS | Encounter Summary ---
Author Organization [employer] Address [address] [facility] [address] [place] [address] Care Team Providers Care Auto Tune Up Mechanic Name Role Phone Tammy Caceres [facility] Primary Care Provider [phone] Encounter Details Date Type Department Care Team ([facility] Contact Info) Description 11/06/2024 Orders Only GENERIC EXTERNAL DATA DEPARTMENT Provider, Generic External Data Social History Tobacco Use Types Packs/Day Years Used Date Smoking Tobacco: Former Cigarettes Passive Smoke Exposure: Past Smokeless Tobacco: Never Alcohol Use Standard Drinks/Week [...] on file documented as of this encounter Procedures Procedure Name Priority Date/Time Associated Diagnosis Comments CYTOPATH-CELL ENHANCED Routine 11/06/2024 4:36 PM EDT documented in this encounter Results * Cytopath-cell enhanced (11/06/2024 4:36 PM EDT) 11/06/2024 4:36 PM EDT 11/07/2024 9:05 AM EDT [facility] - 11/09/2024 10:20 AM EDT ----- ------- Name: Abdulaziz Nolasco ?Age/Sex: 44/M ? : 1980 Unit#: [id number] ?? Attend Dr: Jennifer MonterrosoP- ?Re11/06/24 ?Status: DEP REF ? Location: HO.LNP ?Disch: ? ----- ------- SPEC : [id number] ? RECD: 11/07/24 ? STATUS: ??SOUT ? REQ NUM: [id number] ? ANAYELI: 11/06/24 ? SUBM DR: Jennifer Monterroso [employer] DIP[employer]-BC ? ENTERED: ??11/07/24 ?SP TYPE: Cytology ? OTHR DR: Fay Hensley MD ? ORDERED: ??Cyto-enhanced ? Diagnosis ?? Urine, cytology: ??Negative for high-grade urothelial carcinoma. ? COMMENT: ??Review of the cytology preparation demonstrates a cellular specimen composed of ?? squames and urothelial cells. Crystals are noted. There is no significant atypia seen. ?Clinical History Hematuria, unspecified ? Material Received ?? Urine ? Gross Description Received is 45 cc of clear orange fluid from which a ThinPrep slide is prepared. ?IHC S/NG Disclaimer NOTE: ??Unless otherwise stated, all tissue is formalin-fixed and paraffin- embedded. ??Some or all of the immunohistochemical tests reported herein may have been developed and their performance characteristics determined by [facility]. ??They have not been cleared or approved by the U.S. Food and Drug Administration (FDA). ??However, the FDA has determined that such clearance or approval is not necessary. ??This laboratory is certified under the Clinical Laboratory Improvement Amendments of 1988 (CLIA) as qualified to perform high complexity clinical laboratory testing. Copies To: ?? Fay Hensley MD ?? [facility] ?? [address] ?? [place] [address] ?? [phone] ?? Jennifer Monterroso-BC ?? [facility] ?? [address] [place] [address] [address] ?? [place] [address] ?? [phone] ?? [email or web address] ? CONTINUED ON NEXT PAGE ----- ------- Name: Abdulaziz Nolasco ?Age/Sex: 44/M ? : 1980 Unit#: [id number] ?? Attend Dr: Jennifer Monterroso [employer]-BC ?Re11/06/24 ?Status: DEP REF ? Location: [facility] ?Disch: ? ----- ------- SPEC : [id number] ? RECD: 11/07/24 ? STATUS: ??SOUT ? REQ NUM: [id number] ? ANAYELI: 11/06/24-1635 ? SUBM : Jennifer Monterroso [facility] ? ENTERED: ??11/07/24 ?SP TYPE: Cytology ? OTHR : Fay Hensley MD ? ORDERED: ??Cyto-enhanced ? ----- ------- Signed (signature on file) Rosemary Rivas MD 11/09/24 1020 ? ----- ------- ? END OF REPORT ? us Generic External Data Provider LAB CYTOLOGY ORDE RABLES Final Result Performing Organization Address City/State/[facility] Co de Phone Number [facility] [address] [place] [address] [phone] documented in this encounter Visit Diagnoses Not on filedocumented in this encounter Additional Health Concerns Assessment Noted Time PHQ-9 Depression Total Score: 24 025 2:56 PM EDT documented as of this encounter Care Teams Auto Tune Up Mechanic Relationship Specialty Start Date End Date Tammy Caceres FNP [address] [place] [address] PCP - General Family Medicine 09/13/24 documented as of this encounter
== END 2024-11-13 14:14 | disposition home or self-care (01) ==
LOC: HO.HGS 13:54
PROVIDERS: PCP Internal Medicine; Visit Provider Surgery
DX: D17.9 Benign lipomatous neoplasm, unspecified (principal)
CPT/HCPCS: 99213

== ENCOUNTER → 2024-11-13 13:53 | Outpatient (BNVA) | payer MEDICAID, SELFPAY | PROVIDERS: PCP Internal Medicine; Visit Provider Surgery | DX: D17.9 Benign lipomatous neoplasm, unspecified (principal) | CPT/HCPCS: 99212 ==

== ENCOUNTER 2024-11-24 16:13 | Outpatient (REF) | payer MEDICAID, SELFPAY ==
[2024-11-24 18:23] LABS: CT PCR NOT DETECTED (Not Detect.); NG PCR NOT DETECTED (Not Detect.)
== END 2024-11-24 16:14 | disposition home or self-care (01) ==
LOC: HO.HHCLNP 16:13
PROVIDERS: Visit Provider Family Medicine
DX: R39.9 Unspecified symptoms and signs involving the genitourinary system (principal)
CPT/HCPCS: 87086; 87491; 87591

== ENCOUNTER 2024-11-30 13:45 | Outpatient (REF) | payer MEDICAID, SELFPAY | END 2024-11-30 13:46 | disposition home or self-care (01) | LOC: HO.LNP 13:45 | PROVIDERS: PCP Internal Medicine; Visit Provider Surgery | DX: D17.9 Benign lipomatous neoplasm, unspecified (principal) | CPT/HCPCS: 11442; 21013; 88304 ==

== ENCOUNTER 2024-11-30 13:45 | Outpatient (AMB) | payer MEDICAID, SELFPAY ==
--- NOTE | 2024-11-30 13:49 | MHC.OFFVIS ---
Vital Signs 11/30/24 14:03 Height 5 ft 10 in Weight 227 lb BMI 32.6 BP 124/59 L Blood Pressure Location Rt brachial Position Sitting Pulse 55 Intake Visit Reasons: [facility] Intake Note: Patient here for lipoma excision X2. A) Rt forehead B) Rt volar forearm. Certified Green Building Engineer Required: No Accompanied by: Self / Same As Patient Allergies opium poppy Allergy (Severe, Verified 11/30/24 13:50) Anaphylaxis HPI HPI [facility]: Details: He is here for excision of the lipoma from the had an on the right forearm. [facility] Medical History Low back pain Social History Patient Tobacco Use Status: Tobacco use Unknown Physical Exam Vital Signs: Last Vital Signs Pulse 55 11/30/24 14:03 BP 124/59 L 11/30/24 14:03 BMI result Body Mass Index 32.6 Office Procedures Excision Details: He was placed supine. The area of the lipoma on the right forehead was prepped and draped. Lidocaine 1% was used for local anesthesia infiltrated the area with lidocaine 1%. I made a short incision with a blade 15. This carried down sharply through the full-thickness of the skin and subcutaneous fat. There was note of the occipitalis muscle fibers underneath this was the lipomatous mass about 1.5 cm. This was therefore a submuscular lipoma on the forehead. I sharply dissected this away from the muscle and until this has completely delivered. This was sent as specimen. I irrigated. I closed the incision with full-thickness nylon 5 0 simple interrupted sutures. Steri-Strips were applied. I then prepped and draped the area of the 2nd lipoma in the right forearm. Lidocaine 1% was used for local anesthesia. I made an incision in the skin overlying this with a blade 15. This was carried down through the full-thickness of the skin and subcutaneous fat until the lipoma was visualized. I sharply dissected lipoma from the subcutaneous layer and this was delivered and sent as specimen. This was about 1 cm in diameter. I closed the incision with full-thickness nylon 3-0 simple interrupted sutures. Dressings were applied. The procedure was completed. He tolerated procedure well. There were no immediate complications. 20015-Ijqrfzpy face/ear/eyelid/nose/lip/mucous membrane 0.6cm-1cm 37937-Lcmlvnpo face/ear/eyelid/nose/lip/mucous membrane 1.1cm-2cm Procedure code (CPT) selection complete Assessment & Plan Assessment & Plan (1) Multiple lipomas: Code(s): D17.9 - Benign lipomatous neoplasm, unspecified Category: Surgical Plan: Excision of a submuscular lipoma of the Yulia forehead and achy subcutaneous lipoma from the right arm was done. He was given wound care instructions. He will be in the office next week for removal of sutures. He can take Tylenol and ibuprofen for pain p.r.n.. Coding Level of Care Code Procedure Only Diagnoses Multiple lipomas D17.9 CPT Codes Face/Ear/Eyelid/Nose/Lip/Mucous Membrane - CPT: 79230-Iolbsghy face/ear/eyelid/nose/lip/mucous membrane 0.6cm-1cm ([id number]) Face/Ear/Eyelid/Nose/Lip/Mucous Membrane - CPT: 30243-Efamvjgc face/ear/eyelid/nose/lip/mucous membrane 1.1cm-2cm ([id number])
[2024-11-30 14:03] VITALS: BP 124/59; PULSE 55; BMI 32.6
--- OUTSIDE RECORDS SUMMARY | 2024-11-30 16:36 | XMS_ITS | Clinical Summary ---
Author Organization [facility] Address [address] [place] [address] Phone Care Team Providers Care Client Service Supervisor Name Role Phone Aruna Chowdary MD Primary Care Provider [phone] Social History Tobacco Use Types Packs/Day Years [...] topic Insurance MEDICAID - [place] Care Teams Client Service Supervisor Relationship Specialty Start Date End Date Haines, MD Aruna [address] [place] [phone] PCP - General Family Medicine 10/17/18
== END 2024-11-30 14:43 | disposition home or self-care (01) ==
LOC: HO.HGS 13:45
PROVIDERS: PCP Internal Medicine; Visit Provider Surgery
DX: D17.0 Benign lipomatous neoplasm of skin and subcutaneous tissue of head, face and neck (principal); D17.21 Benign lipomatous neoplasm of skin and subcutaneous tissue of right arm
CPT/HCPCS: 11442; 21013

== ENCOUNTER 2025-01-29 13:12 | Outpatient (AMB) | payer MEDICAID, SELFPAY ==
--- NOTE | 2025-01-29 13:20 | A.OFFVIS_ITS ---
Vital Signs 01/29/25 13:28 Height 5 ft 10 in Weight 223 lb BMI 32.0 BP 112/68 Blood Pressure Location Lt brachial Position Sitting Pulse 57 Intake Visit Reasons: mult lipoma excisions Intake Note: Patient is seen in office for multiple lipomas. Pt c/o: has new lumps in the right forearm, back of the right forearm and the neck, has constant daily pain in the head after the removal of the forehead mass, denies any other concerns Field Care Advocate Required: No Accompanied by: Self / Same As Patient Allergies opium poppy Allergy (Severe, Verified 01/29/25 13:28) Anaphylaxis Medication List - Last Reconciled 01/29/25 by Nathan Patrick MD albuterol sulfate 90 mcg/actuation 2 puffs inhalation Q4-6H PRN ibuprofen 400 mg PO Q6H PRN trazodone 100 mg PO BEDTIME HPI HPI mult lipoma excisions: Details: He has known lipomas before. He says he has noticed 2 more lipomas, 1 on the right forearm and 1 on the right thigh area. He says that these do not bother him but he wanted this checked. He denies any skin changes. REPLACED BY [facility] Medical History Low back pain Social History Patient Tobacco Use Status: Tobacco use Unknown Review of Systems Const Denies chills and Denies fever(s) Card Denies chest pain Resp Denies cough GI Denies abdominal pain Physical Exam Vital Signs: Last Vital Signs Pulse 57 01/29/25 13:28 BP 112/68 01/29/25 13:28 BMI result Body Mass Index 32.0 Const General: comfortable and no acute distress Resp Effort & Inspection: normal respiratory effort Cardio Rate: regular rate Extrem Other: Right forearm with note of a small lipomatous mass, about 0.5 cm Right thigh with also a small lipomatous mass about 0.5 cm Assessment & Plan Assessment & Plan (1) Multiple lipomas: Code(s): D17.9 - Benign lipomatous neoplasm, unspecified Category: Surgical Plan: He has new lipomas on the right forearm as well as in the right thigh. He says that these do not bother him. I did tell him the option of excision. He says that he will let me know or come back to the office if he decides to proceed with excision. He says that he would like to hold off on excision at this time. Coding Level of Care Code Est Pt Level 3 (57131) Diagnoses Multiple lipomas D17.9
[2025-01-29 13:28] VITALS: BP 112/68; PULSE 57; BMI 32.0
--- OUTSIDE RECORDS SUMMARY | 2025-01-29 14:32 | XMS_ITS | Encounter Summary ---
Author Organization [employer] Address [address] [place] [address] [place] [address] Care Team Providers Care Director Of Safety Name Role Phone Radha Weller MD Primary Care Provider + Fay Hensley MD Primary Care Provide r [facility] Primary Care Provider [phone] Encounter Details Date Type Department Care Team ([facility] st Contact Info) Description 06/09/2023 [facility] Health Information Management [address] [place] [address] Radha Weller MD [address] [place] [address] Social History Tobacco Use Types Packs/Day Years [...] on filedocumented in this encounter Care Teams Director Of Safety Relationship Specialty Start Date End Date Radha Weller MD [address] [place] [address] PCP - General Family Medicine 05/18/16 10/25/23 Fay Hensley MD [address] [place] [address] PCP - General Internal Medicine 10/26/23 09/12/24 WalthamTammy FNP [address] [place] [address] PCP - General Family Medicine 09/13/24 documented as of this encounter
--- OUTSIDE RECORDS SUMMARY | 2025-01-29 14:32 | XMS_ITS | Clinical Summary ---
Author Organization [employer] Address [address] [place] [address] Care Team Providers Care Head Of Business Development Name Role Phone [place] [facility] Primary Care Provider [phone] Allergies No known active allergies Medications Respiratory [...] for wheezing. 18 g 11 3 Active triamcinolone (Kenalog) 0.1 % ointment Apply topically if needed in the morning and at bedtime for rash. 30 g 1 5 Active diphenhydrAMINE (BENADryl) 25 MG tablet Take 1 tablet (25 mg) by mouth every 6 (six) hours if needed for itching. 30 tablet 1 5 Active Active Problems Problem Noted Date Diagnosed Date Anxiety with depression 08/31/2024 Assessment & Plan (09/01/2024 9:39 AM EDT): Patient tells me he follows with a therapist in [facility] and that he also has a psychiatrist [...] [facility] the [facility], he states that I should look in the internet (EHR? ). 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 I suggested that he could talk to his damper worker abut this specific round up specialist and [...] to see someone more competent. Team nurse calender supervisor is called to further determine POC and [...] Encounters Date Type Department Care Team Description 12/07/2024 Travel 12/01/2024 Orders Only [facility] [address] [place] [id number] Sarita Ng RN 11/30/2024 Orders Only GENERIC EXTERNAL DATA DEPARTMENT Provider, Generic External Data 11/24/2024 4:00 PM EDT Office Visit [facility] [address] [place] [address] Vania Emerson DO Acute UTI (Primary Dx); Rash; UTI symptoms 11/06/2024 Orders Only GENERIC EXTERNAL DATA DEPARTMENT Provider, Generic External Data from Last 3 Months Immunizations Immunization Administration Dates Next Due DTP 12/05/1986, 6,11/06/1983,1982,1982 [...] Sign Reading Time Taken Comments Blood Pressure 118/78 11/24/2024 2:02 PM EDT Pulse 83 11/24/2024 2:02 PM EDT Temperature 36.7 C (98 F) 11/24/2024 2:02 PM EDT Respiratory Rate 16 11/24/2024 2:02 PM EDT Oxygen Saturation 98% 08/31/2024 2:55 PM EDT Inhaled Oxygen Concentration - - Weight 103 kg (226 lb) 11/24/2024 2:02 PM EDT Height 177.8 cm (5' 10 ) 11/24/2024 2:02 PM EDT Body Mass Index 32.43 11/24/2024 2:02 PM EDT Plan of Treatment Health Maintenance Due Date Last Done Comments Lipid Panel 1980 Disability Screening 1982 Alcohol/Substance Use Screening 1994 Family Planning (PISQ) 1997 HPV Vaccines (1 - Male 3-dose series) 1997 Pneumococcal Vaccine: Pediatrics (0 to 5 Years) and At-Risk Patients (6 to 49) Years (1 of 2 - PCV) 2001 COVID-19 Vaccine (2 - season) 2024 10/18/2020 DTaP/Tdap/Td Vaccines (7 - Td or Tdap) 06/03/2024 06/03/2014, 03/31/1996, 12/05/1986, Additional history exists SDOH Screening 10/06/2024 10/07/2023 Influenza Vaccine (#1) 2025 4, 04/19/1998, 04/19/1998 Depression Monitoring 03/03/2025 08/31/2024, 025 Tobacco Screening 11/24/2025 11/24/2024 Zoster Vaccines (1 of 2) 2032 RSV Patients and Patients Aged 60 years or older (1 - 1-dose 75+ series) 2057 IPV Vaccines Completed 12/05/1986, 02/0 06/1985, 11/06/1983, Additional history exists Hepatitis B Vaccines Completed 04/02/1998, 03/12/1997, 01/10/1997 HIV Screening Completed 11/21/2024, 01/13/2023 Hepatitis C Screening Completed 11/21/2024, 023 HIB Vaccines Aged Out No longer eligi [...] Procedure Name Priority Date/Time Associated Diagnosis Comments GROSS AND MICROSCOPIC LEVEL 3 Routine 11/30/2024 2:30 PM EDT CHLAMYDIA/N. GONORRHOEAE RNA, TMA, UROGENITAL Routine 11/24/2024 2:12 PM EDT UTI symptoms CULTURE, URINE, ROUTINE Routine 11/24/2024 2:12 PM EDT UTI symptoms POCT URINALYSIS DIPSTICK Routine 11/24/2024 2:11 PM EDT UTI symptoms HIV ANTIBODY/ANTIGEN ([place] DPH) Routine 11/21/2024 HEPATITIS C ANTIBODY ([place] DPH) Routine 11/21/2024 SYPHILIS ABS ([place] DPH) Routine 11/21/2024 CHLAMYDIA/GONORRHEA - URINE ([place] DPH) Routine 11/21/2024 CHLAMYDIA/GONORRHEA THROAT SWAB ([place] DPH) Routine 11/21/2024 CYTOPATH-CELL ENHANCED Routine 11/06/2024 4:36 PM EDT from Last 3 Months Results * Gross and Microscopic Level 3 (11/30/2024 2:30 PM EDT) 11/30/2024 2:30 PM EDT 12/01/2024 7:45 AM EDT [facility] - 12/04/2024 2:07 PM EDT ----- ------- Name: Abdulaziz Nolasco Age/Sex: 44/M : 1980 Unit#: [id number] Attend Dr: Nathan Patrick MD Re11/30/24 Status: DEP REF Location: [facility] Disch: ----- ------- SPEC : [id number] RECD: 12/01/2445 STATUS: NEAL CARLIN NUM: [id number] ANAYELI: 11/30/24-[address]: Nathan Patrick MD ENTERED: 12/01/24-0753 SP TYPE: Surgical OTHR DR: Fay Hensley MD ORDERED: Gross Micro L3/2 Diagnosis A. Soft tissue, right forehead, excision: Mature lobular adipose tissue consistent with lipoma. B. Soft tissue, right volar forearm, excision: Angiolipoma. Clinical History Rule out lipoma Microscopic Description Microscopic sections reviewed. Material Received A. Right forehead B. Right volar forearm Gross Description Received in two parts. Part A: Received in formalin labeled right forehead are several fragments of burnett-yellow lobular adipose tissue ranging from 0.3-1.2 cm. Due to the fragmented nature in which the specimen is received the margins can not be evaluated. Sectioning reveals homogeneous bosch-yellow lobular fat. No fleshy, hemorrhagic or necrotic foci are identified. The specimen is entirely submitted in a cassette labeled A. Part B: Received in formalin labeled right volar forearm is a 1.2 cm in greatest dimension rubbery, firm, burnett-yellow lobular portion of adipose tissue. The margins are inked and the specimen is serially sectioned to reveal homogeneous burnett-yellow lobular fat. No fleshy, hemorrhagic or necrotic foci identified. The specimen is entirely submitted in a cassette labeled B. CEDS IHC S/NG Disclaimer NOTE: Unless otherwise stated, all tissue is formalin-fixed and paraffin-embedded. Some or all of the immunohistochemical tests reported herein may have been developed and their performance characteristics determined by [facility]. They have not been cleared or approved by the U.S. Food and Drug Administration (FDA). However, the FDA CONTINUED ON NEXT PAGE ----- ------- Name: Abdulaziz Nolasco Age/Sex: 44/M : 1980 Unit#: [id number] Attend Dr: Nathan Patrick MD Re11/30/24 Status: DEP REF Location: [facility] Disch: ----- ------- SPEC : [id number] RECD: 12/01/245045 STATUS: NEAL CARLIN NUM: [id number] ANAYELI: 11/30/24-1430 [facility] DR: Nathan Patrick MD ENTERED: 12/01/240243 SP TYPE: Surgical OTHR DR: Fay Hensley MD ORDERED: Alyson Micro L3/2 IHC S/NG Disclaimer (Continued) has determined that such clearance or approval is not necessary. This laboratory is certified under the Clinical Laboratory Improvement Amendments of 1988 (CLIA) as qualified to perform high complexity clinical laboratory testing. Copies To: Fay Hensley MD [facility] [address] [place] [address] Nathan Patrick MD [facility] [address] [place] [address] ----- ------- Signed (signature on file) Alise [place] 12/04/24 1407 ----- ------- END OF REPORT Generic External Data Provider LAB CYTOLOGY ROE LOPEZ Final Result [facility] [address] [place] [address] [phone] * Chlamydia/N. Gonorrhoeae RNA, TMA, Urogenitial (11/24/2024 2:12 PM EDT) CT PCR NOT DETECTED Not Detect. [facility] Comment:A not detected test result does not exclude the possibilityof infection because test results can be affected byimproper specimen collection, concurrent antibiotic therapy,or the number of organisms in the specimen which may bebelow the sensitivity of the test. As with many diagnostictests, results from the Xpert CT/NG assay should beinterpreted in conjunction with other laboratory andclinical data available to the clinician.Xpert CT/NG performance has not been evaluated in patientsless than 14 years of age. The assay should not be used forthe evaluationof suspected sexual abuse or for other medico-legalindications. Additional testing is recommended in anycircumstance when false positive or false negative resultscould lead to adverse medical, social or psychologicalconsequences. NG PCR NOT DETECTED Not Detect. [facility] Comment:A not detected test result does not exclude the possibilityof infection because test results can be affected byimproper specimen collection, concurrent antibiotic therapy,or the number of organisms in the specimen which may bebelow the sensitivity of the test. As with many diagnostictests, results from the Xpert CT/NG assay should beinterpreted in conjunction with other laboratory andclinical data available to the clinician.Xpert CT/NG performance has not been evaluated in patientsless than 14 years of age. The assay should not be used forthe evaluationof suspected sexual abuse or for other medico-legalindications. Additional testing is recommended in anycircumstance when false positive or false negative resultscould lead to adverse medical, social or psychologicalconsequences. Urine (Urine, Random) 11/24/2024 2:12 PM EDT 11/24/2024 4:14 PM EDT Narrative [facility] - 11/24/2024 6:23 PM EDT Urine us Vania Emerson DO LAB MICROBIOLOGY - GENERAL O RDERABLES Final Result [facility] [address] [place] [phone] * Culture, Urine, Routine (11/24/2024 2:12 PM EDT) Urine Urine specimen obtained by clean catch procedure / Unknown 11/24/2024 2:12 PM EDT 11/24/2024 4:14 PM EDT Comment:UACC Narrative [facility] - 11/26/2024 10:11 AM EDT Urine Culture No growth. Specimen Source: Urine clean catch Vania Emerson DO LAB MICROBIOLOGY - GENERAL O RDERABLES Final Result [facility] [address] [place] [address] [phone] * (ABNORMAL) POCT urinalysis dipstick manually resulted (11/24/2024 2:11 PM EDT) Color, UA Yellow Clarity, UA Clear Glucose, UA Negative Bilirubin, UA Negative Ketones, UA Negative Spec Grav, UA 1.025 Blood, UA Positive(A) Negative, None Detected Comment:moderate pH, UA 5.5 Protein, UA Negative Urobilinogen, UA 0.2 Leukocytes, UA Trace Negative, Rare, Trace Nitrite, UA Negative Negative, None Detected Urine 11/24/2024 2:11 PM EDT Vania Emerson DO POINT OF CARE TEST ENTER/DUNG T ORDERABLES Final Result * Chlamydia/Gonorrhea Throat Swab ([place] DPH) (11/21/2024) Chlamydia Throat Swab Negative Gonorrhea Throat Swab Negative Swab 11/21/[address] [facility] Historical Provider LAB MICROBIOLOGY - GENERA L ORDERABLES Final Result * Chlamydia/Gonorrhea, Urine ([place] DPH) (11/21/2024) Chlamydia, Urine Negative Negative, Indeterminate, None Detected, Invalid, Specimen unsatisfactory for evaluation, Weakly Positive, 2+ Gonorrhea, Urine Negative Negative, Indeterminate, None Detected, Invalid, Specimen unsatisfactory for evaluation, Weakly Positive, 2+ Urine 11/21/[address] [facility] Historical Provider LAB URINE ORDERABLES Juju l Result * Syphilis Antibodies (DPH) (11/21/2024) Pathologist [facility] Syphilis Abs Nonreactive Borderline, Nonreactive, Weakly Reactive, Inconclusive, Specimen unsatisfactory for evaluation Blood Venous blood specimen / Unknown 11/21/2024 [facility] MD LAB BLOOD ORDERABLES Juju l Result * Hepatitis C Antibody ([place] DP) (11/21/2024) Pathologist [facility] Hepatitis C Ab Nonreactive Blood 11/21/2024 [facility] MD LAB BLOOD ORDERABLES Juju l Result * HIV Ab/Ag ([place] DPH) (11/21/2024) Pathologist [facility] HIV Ag/Ab Nonreactive Blood 11/21/2024 Result [facility] MD LAB BLOOD ORDERABLES Juju l Result * Cytopath-cell enhanced (11/06/2024 4:36 PM EDT) 11/06/2024 4:36 PM EDT 11/07/2024 9:05 AM EDT Svitlana [facility] - 11/09/2024 10:20 AM EDT ----- ------- Name: Abdulaziz Nolasco Age/Sex: 44/M : 1980 Unit#: [id number] Attend Dr: Jennifer Monterroso [facility]- Re11/06/24 Status: DEP REF Location: [facility] Disch: ----- ------- SPEC : [id number] RECD: 11/07/24 STATUS: NEAL CARLIN NUM: [id number] ANAYELI: 11/06/24 [facility] [address]: Jennifer Monterroso [facility] ENTERED: 11/07/24 SP TYPE: Cytology OT DR: Fay Hensley MD ORDERED: Cyto-enhanced Diagnosis Urine, cytology: Negative for high-grade urothelial carcinoma. COMMENT: Review of the cytology preparation demonstrates a cellular specimen composed of squames and urothelial cells. Crystals are noted. There is no significant atypia seen. Clinical History Hematuria, unspecified Material Received Urine Gross Description Received is 45 cc of clear orange fluid from which a ThinPrep slide is prepared. IHC S/NG Disclaimer NOTE: Unless otherwise stated, all tissue is formalin-fixed and paraffin-embedded. Some or all of the immunohistochemical tests reported herein may have been developed and their performance characteristics determined by [facility]. They have not been cleared or approved by the U.S. Food and Drug Administration (FDA). However, the FDA has determined that such clearance or approval is not necessary. This laboratory is certified under the Clinical Laboratory Improvement Amendments of 1988 (CLIA) as qualified to perform high complexity clinical laboratory testing. Copies To: Fay Hensley MD [address] [phone] Jennifer Monterroso [facility] [address] [place] [address] [address]. [address] [place] [address] [email or web address] CONTINUED ON NEXT PAGE ----- ------- Name: Abdulaziz Nolasco Age/Sex: 44/M : 1980 Unit#: [id number] Attend Dr: Jennifer Monterroso [facility] Re11/06/24 Status: DEP REF Location: [facility] Disch: ----- ------- SPEC : [id number] RECD: 11/07/24 STATUS: NEAL CARLIN NUM: [id number] ANAYELI: 11/06/24 [facility] [address]: Jennifer Monterroso [facility] ENTERED: 11/07/24-1053 SP TYPE: Cytology OTHR DR: Fay Hensley MD ORDERED: Cyto-enhanced ----- ------- Signed (signature on file) Rosemary Rivas MD 11/09/24 1020 ----- ------- END OF REPORT us Generic External Data Provider LAB CYTOLOGY ROE LOPEZ Final Result [facility] [address] [place], [place] [phone] from Last 3 Months Insurance [facility] Care Teams Head Of Business Development Relationship Specialty Start Date End Date Tammy Caceres FNP [address] [place] [address] PCP - General Family Medicine 09/13/24
== END 2025-01-29 13:36 | disposition home or self-care (01) ==
PROVIDERS: PCP Internal Medicine; Visit Provider Surgery
DX: D17.21 Benign lipomatous neoplasm of skin and subcutaneous tissue of right arm (principal); D17.23 Benign lipomatous neoplasm of skin and subcutaneous tissue of right leg
CPT/HCPCS: 99213

== ENCOUNTER → 2025-01-29 13:12 | Outpatient (BNVA) | payer MEDICAID, SELFPAY | PROVIDERS: PCP Internal Medicine | DX: D17.21 Benign lipomatous neoplasm of skin and subcutaneous tissue of right arm (principal); D17.23 Benign lipomatous neoplasm of skin and subcutaneous tissue of right leg | CPT/HCPCS: 99212 ==

== ENCOUNTER 2025-04-26 14:05 | Outpatient (REF) | payer MEDICAID, SELFPAY ==
--- OUTSIDE RECORDS SUMMARY | 2025-04-26 14:00 | XMS_ITS | Encounter Summary ---
Author Organization [employer] Address [address] [facility] [address] [place] [address] Care Team Providers Care [employer] Operator Name Role Phone Tammy Caceres DYE BLENDER Primary Care Provider [phone] Encounter Details Date Type Department Care Team ([facility] st Contact Info) Description 04/26/2025 2:00 PM EST Office Visit [facility] [address] [place] [address] Vania Emerson DO [address] [place] [address] Panic attack (Primary Dx); Epigastric pain; Mild intermittent asthma without complication; Moderate persistent asthma with acute exacerbation Social History Tobacco Use Types Packs/Day Years [...] AM EDT documented as of this encounter Progress Notes * Vania Emerson, DO - 04/26/2025 2:20 PM EST SUBJECTIVE: Abdulaziz Nolasco is a 45 y.o. year old male who presents for sick visit. HPI He comes to [place] with multiple complaints. He initially c/o dizziness and was triaged by [place] RN c/o chest pain, SOB, headache and nausea. His vitals were nml and he had an EKG done. Dizziness - Reports initially feeling unbalanced and SOB and decided to come in and get checked - Reports wheezing initially but did not use medication until mom recommended that he use his albuterol pump and wheezing resolved; he needs nebulizer machine and liquid as this works better for his asthma - Reports chest pain at the bottom of the sternum since yesteray, describes burning squeezing pain;he has never been given meds for acid reflux - Reports headache, denies other URI sx including ST, ear pain, congestion and cough - Denies fevers/chills - Has a history of anxiety but has never been on medication for it - Stress from recent events, including court appearances and concerns about daughter and grandchildren and job, may have triggered his sx; recently had GPS removed after being on parole and had another court appearance today - Currently sees a therapist every 15 days at [facility] - Reports heavy marijuana use; history of cocaine use He says that he feels 100% better since he came into [place]. His SOB has resolved. He still has a little dizziness but mostly gone. He has the same burning in his chest. No N/V. Review of Systems Constitutional: Negative for chills, fatigue and fever. HENT: Negative for congestion. Eyes: Negative for visual disturbance. Respiratory: Negative for cough and shortness of breath. Cardiovascular: Negative for chest pain, palpitations and leg swelling. Gastrointestinal: Negative for abdominal pain, constipation, diarrhea and vomiting. Skin: Negative for rash. Neurological: Negative for dizziness and headaches. Patient Active Problem List Diagnosis Anxiety state Asthma Chronic low back pain Dyspnea Contact dermatitis Microscopic hematuria Posttraumatic stress disorder Primary insomnia Substance abuse ([facility] ([facility]) Anxiety about health Hemoptysis Weight loss Hematuria Gastrointestinal hemorrhage with melena Elevated blood pressure reading Anxiety with depression Dizziness Lipoma of head Lipoma of neck Lipoma of upper extremity Right hand pain No Known Allergies OBJECTIVE There were no vitals filed for this visit. Physical Exam Constitutional: General: He is not in acute distress. Appearance: Normal appearance. HENT: Right Ear: Tympanic membrane, ear canal and external ear normal. Left Ear: Tympanic membrane, ear canal and external ear normal. Nose: Nose normal. Mouth/Throat: Pharynx: Oropharynx is clear. Eyes: Extraocular Movements: Extraocular movements intact. Conjunctiva/sclera: Conjunctivae normal. Pupils: Pupils are equal, round, and reactive to light. Cardiovascular: Rate and Rhythm: Normal rate and regular rhythm. Heart sounds: Normal heart sounds. No murmur heard. Pulmonary: Effort: Pulmonary effort is normal. Breath sounds: Normal breath sounds. No wheezing or rhonchi. Abdominal: General: Bowel sounds are normal. Palpations: Abdomen is soft. There is no mass. Tenderness: There is abdominal tenderness in the epigastric area. Musculoskeletal: Cervical back: Normal range of motion and neck supple. No tenderness. Lymphadenopathy: Cervical: No cervical adenopathy. Neurological: General: No focal deficit present. Mental Status: He is alert and oriented to person, place, and time. Cranial Nerves: No cranial nerve deficit. Motor: No weakness. Gait: Gait normal. Psychiatric: Attention and Perception: Attention normal. Mood and Affect: Mood is anxious. Speech: Speech normal. Behavior: Behavior normal. Thought Content: Thought content normal. Encounter Date: 04/26/25 ECG 12 lead Narrative NSR at 58bpm, nml axis/intervals, no Q waves, no ST depression/elevation, TWF III ASSESSMENT/PLAN Diagnoses and all orders for this visit: Panic attack Likely triggered by recent life stressors, currently resolved -provided reassurance -trial vistaril prn acute anxiety -f/u with therapist as schedued -advised d/w therapist re: referral to psychiatrist -advised rtc or go to ED if symptoms change or worsen Epigastric pain Persistent burning pain, probable GERD -check basic labs -check amylase lipase -trial prilosec daily -advised contact [facility] if no improvement, he agrees with plans - T4, Free; Future - Lipid Panel, Standard; Future - TSH; Future - Vitamin D, 25-Hydroxy, Total, Immunoassay; Future - Hepatic Function Panel; Future - Hemoglobin A1c; Future - CBC; Future - Basic Metabolic Panel; Future - Amylase; Future - Lipase; Future - ECG 12 lead Mild intermittent asthma without complication Symptoms resolved with albuterol, likely 2/2 anxiety, no sign of exacerbation -cont albuterol prn, will provide pt with nebulizer machine for home use F/U with PCP as scheduled or sooner prn Current Outpatient Medications: albuterol (2.5 MG/3ML) 0.083% nebulizer solution, Take 3 mL (2.5 mg) by nebulization every 4 (four)hours if needed for wheezing or shortness of breath., Disp: 75 mL, Rfl: 1 albuterol 108 (90 Base) MCG/ACT inhaler, Inhale 2 puffs every 4 (four) hours if needed for wheezingor shortness of breath., Disp: 18 g, Rfl: 1 diphenhydrAMINE (BENADryl) 25 MG tablet, Take 1 tablet (25 mg) by mouth every 6 (six) hours if needed for itching., Disp: 30 tablet, Rfl: 1 hydrOXYzine pamoate (Vistaril) 50 MG capsule, Take 1 capsule (50 mg) by mouth every 6 (six) hours if needed for anxiety., Disp: 30 capsule, Rfl: 1 Nebulizer misc, Use with albuterol every 4-6 hours as needed, Disp: 1 each, Rfl: 0 omeprazole OTC (PriLOSEC OTC) 20 MG EC tablet, Take 1 tablet (20 mg) by mouth before breakfast. Do not crush, chew, or split., Disp: 90 tablet, Rfl: 3 Respiratory Therapy Supplies (Nebulizer/Tubing/Mouthpiece) kit, Use with nebulizer machine for albuterol, Disp: 1 kit, Rfl: 1 triamcinolone (Kenalog) 0.1 % ointment, Apply topically if needed in the morning and at bedtime forrash., Disp: 30 g, Rfl: 1 This note was drafted using Ambient (AI) technology. The patient/patient's guardian has been informed and has consented to the use of this technology: Yes documented in this encounter Plan of Treatment Scheduled Orders Name Type Priority Associated Diagnoses Orde r Schedule Lipid Panel, Standard Lab Routine Epigastric pain Expected: 04/26/2025 (Approximate), Expires: 04/26/2026 Vitamin D, 25-Hydroxy, Total, Immunoassay Lab Routine Epigastric pain Expected: 04/26/2025 (Approximate), Expires: 04/26/2026 Hemoglobin A1c Lab Routine Epigastric pain Expected: 04/26/2025 (Approximate), Expires: 04/26/2026 CBC Lab Routine Epigastric pain Expected: 04/26/2025, Expires: 04/26/2026 Basic Metabolic Panel Lab Routine Epigastric pain Expected: 04/26/2025 (Approximate), Expires: 04/26/2026 documented as of this encounter Procedures Procedure Name Priority Date/Time Associated Diagnosis Comments ECG 12-LEAD Routine 04/26/2025 4:10 PM EST Epigastric pain TSH Routine 04/26/2025 2:14 PM EST Epigastric pain T4, FREE Routine 04/26/2025 2:14 PM EST Epigastric pain LIPASE Routine 04/26/2025 2:14 PM EST Epigastric pain AMYLASE Routine 04/26/2025 2:14 PM EST Epigastric pain HEPATIC FUNCTION PANEL Routine 04/26/2025 2:14 PM EST Epigastric pain documented in this encounter Results * ECG 12 lead (04/26/2025 4:10 PM EST) Narrative Vanai Emerson DO - 04/26/2025 4:10 PM EST NSR at 58bpm, nml axis/intervals, no Q waves, no ST depression/elevation, TWF III Vania Ki DO ECG ORDERABLES Final Result * Lipase (04/26/2025 2:14 PM EST) Lipase 23 8 - 78 U/L [facility] Blood Venous blood specimen / Unknown 04/26/2025 2:14 PM EST 04/26/2025 3:51 PM EST Vania Ki DO LAB BLOOD ORDERABLES Final R esult Performing Organization Address City/[facility]/ZIP Co de Phone Number [facility] [address] [place] [phone] * Amylase (04/26/2025 2:14 PM EST) Amylase 74 28 - 100 U/L [facility] Blood Venous blood specimen / Unknown 04/26/2025 2:14 PM EST 04/26/2025 3:51 PM EST Vania Ki DO LAB BLOOD ORDERABLES Final R esult [facility] [address] [place] [phone] * Hepatic Function Panel (04/26/2025 2:14 PM EST) Bilirubin, Direct 0.2 0.0 - 0.5 mg/dL [facility] Blood Venous blood specimen / Unknown 04/26/2025 2:14 PM EST 04/26/2025 3:51 PM EST Vania Emerson DO LAB BLOOD ORDERABLES Final R esult Performing Organization Address City/[facility]/ZIP Co de Phone Number [facility] [address] [place] [phone] * TSH (04/26/2025 2:14 PM EST) Thyroid Stimulating Hormone 1.66 0.32 - 4.0 uIU/mL [facility] Comment:TSH 3rd Generation ( [facility]) Blood Venous blood specimen / Unknown 04/26/2025 2:14 PM EST 04/26/2025 3:51 PM EST us Vania Emerson DO LAB BLOOD ORDERABLES Final R esult Performing Organization Address City/[facility] Co de Phone Number [facility] [address] [place] [phone] * T4, Free (04/26/2025 2:14 PM EST) Free T4 (Free Thyroxine) 0.94 0.71 - 1.85 ng/dL [facility] Blood Venous blood specimen / Unknown 04/26/2025 2:14 PM EST 04/26/2025 3:51 PM EST us Vania Emerson DO LAB BLOOD ORDERABLES Final R esult Performing Organization Address City/[facility] Co de Phone Number [facility] [address] [place] [phone] documented in this encounter Visit Diagnoses Diagnosis Panic attack- Primary Panic disorder without agoraphobia Epigastric pain Abdominal pain, epigastric Mild intermittent asthma without complication Moderate persistent asthma with acute exacerbation documented in this encounter Additional Health Concerns Assessment Noted Time PHQ-9 Depression Total Score: 24 025 2:56 PM EDT documented as of this encounter Care Teams [employer] Operator Relationship Specialty Start Date End Date Tammy Caceres FNP [address] [place] [phone] PCP - General Family Medicine 09/13/24 documented as of this encounter
[2025-04-26 16:01] LABS: Hematocrit 49.1 % (42.0-52.0); Hemoglobin 15.9 g/dl (14.0-18.0); Imm Gran Abs Auto 0.03 X10*3/uL (0.00-0.03); Imm Gran Pct Auto 0.4 % (0.0-0.4); Lymphocytes Absolute Auto 2.2 X10*3/uL (1.2-4.9); MANUAL DIFF FLAG NO; Mean Corpuscular HGB Conc 32.4 g/dl (31.0-36.0); Mean Corpuscular Hemoglobin 29.0 pg (27.0-33.0); Mean Corpuscular Volume 89.4 fL (80.0-98.0); NRBC Abs Auto 0.000 X10*3/uL (0.0-0.012); NRBC Pct Auto 0.0 /100WBC (0.0-0.2); Platelet Count 281 X10*3/uL (160-400); Red Blood Count 5.49 X10*6/uL (4.60-5.80); White Blood Count 7.1 X10*3/uL (4.8-10.8)
[2025-04-26 16:15] LABS: Blood Urea Nitrogen 10 mg/dL (9-16); Estimated Glomerular Filt Rate > 60
[2025-04-26 16:26] LABS: Alanine Aminotransferase 26 U/L (0-40); Albumin Level 4.0 g/dL (3.5-5.0); Alkaline Phosphatase 48 U/L (39-117); Anion Gap 8 (12-20); Aspartate Amino Transferase 30 U/L (5-37); Blood Urea Nitrogen 10 mg/dL (9-16); Calcium 8.3 mg/dL (8.4-10.2); Carbon Dioxide 28 mmol/L (22-29); Chloride 110 mmol/L (96-108); Cholesterol 175 mg/dL (<200); Estimated Glomerular Filt Rate > 60; HDL Cholesterol 42 mg/dL (>40); Lipase 23 U/L (8-78); Potassium 3.9 mmol/L (3.3-5.1); Sodium 142 mmol/L (135-145); Total Protein 6.0 g/dL (6.5-8.0); Triglycerides 120 mg/dL (<150)
[2025-04-26 16:34] LABS: Thyroid Stimulating Hormone 1.66 uIU/mL (0.32-4.0)
[2025-04-26 16:38] LABS: Amylase 74 U/L (28-100); Free T4 (Free Thyroxine) 0.94 ng/dL (0.71-1.85)
--- OUTSIDE RECORDS SUMMARY | 2025-04-26 19:29 | XMS_ITS | Clinical Summary ---
Author Organization [employer] Address [address] [place] [address] 7[address] [place] [address] Care Team Providers Care Assistant Professor Name Role Phone Nicki [facility] Primary Care Provider Allergies No known active allergies Medications Respiratory Therapy Supplies (Nebulizer/Tubi ng/Mouthpiece) kitIndications: Moderate persistent asthma without complication Use with nebulizer machine for albuterol 1 kit 1 05/19/20 22 Active Nebulizer miscIndications :Moderate persistent asthma without complication Use with albuterol every 4-6 hours as needed 1 each 05/19/20 22 Active triamcinolone (Kenalog) 0.1 % ointment Apply topically if needed in the morning and at bedtime for rash. 30 g 1 11/25/19 25 Active diphenhydrAMINE (BENADryl) 25 MG tablet Take 1 tablet (25 mg) by mouth every 6 (six) hours if needed for itching. 30 tablet 1 11/25/19 25 Active hydrOXYzine pamoate (Vistaril) 50 MG capsule Take 1 capsule (50 mg) by mouth every 6 (six) hours if needed for anxiety. 30 capsule 1 5 4:59 PM EST 04/26/20 25 2025 Active omeprazole OTC (PriLOSEC OTC) 20 MG EC tablet Take 1 tablet (20 mg) by mouth before breakfast. Do not crush, chew, or split. 90 tablet 3 04/26/20 25 2025 Active albuterol (2.5 MG/3ML) 0.083% nebulizer solution Take 3 mL (2.5 mg) by nebulization every 4 (four) hours if needed for wheezing or shortness of breath. 75 mL 1 5 4:59 PM EST 04/26/20 25 2025 Active albuterol 108 (90 Base) MCG/ACT inhalerIndicati ons:Moderate persistent asthma with acute exacerbation Inhale 2 puffs every 4 (four) hours if needed for wheezing or shortness of breath. 18 g 1 5 4:59 PM EST 04/26/20 Active Nebulizer misc Activ e albuterol 0.63 MG/3ML nebulizer solutionIndicat ions:Moderate persistent asthma with acute exacerbation Take 3 mL (0.63 mg) by nebulization every 6 (six) hours if needed for wheezing. 75 mL 11 06/03/20 23 2024 Discontinued albuterol 108 (90 Base) MCG/ACT inhalerIndicati ons:Moderate persistent asthma with acute exacerbation Inhale 2 puffs every 4 (four) hours if needed for wheezing. 18 g 11 06/03/20 23 2024 Discontinued Active Problems Problem Noted Date Diagnosed Date Anxiety with depression 08/31/2024 Assessment & Plan (09/01/2024 9:39 AM EDT): Patient tells me he follows with a therapist in [facility] [place] and that he also has a psychiatrist [...] [facility] in the past, he states that I should look in the internet (EHR? ). 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 I suggested that he could talk to his photonics technician abut this specific round up specialist and [...] to see someone more competent. Team nurse vending stand supervisor is called to further determine POC [...] 06/03/2023 Posttraumatic stress disorder 08/12/2016 Substance abuse ([facility]/HCC) 08/12/20162022 Anxiety state 11/17/2011 06/03/2023 Asthma 11/17/2011 06/03/2023 Assessment & Plan (09/01/2024 9:38 AM EDT): Patient reports stable, continue with same interventions Contact dermatitis 11/17/2011 06/03/2023 Encounters Date Type Department Care Team Description 04/26/2025 2:00 PM EST Office Visit [facility] [address] [place] [phone] Vania Emerson DO Panic attack (Primary Dx); Epigastric pain; Mild intermittent asthma without complication; Moderate persistent asthma with acute exacerbation 04/26/2025 Orders Only GENERIC EXTERNAL DATA DEPARTMENT Provider, Generic External Data 04/26/2025 Telephone [facility] [address] [place] [address] [phone] Tammy Caceres FNP Nurse Triage 04/26/2025 Travel 04/13/2025 Orders Only [facility] [address] [place] [phone] Sarita Ng RN from Last 3 Months Immunizations Immunization Administration [...] Health Maintenance Due Date Last Done Comments Dental Oral Exam 1982 Dental Prophylaxis 1982 Dental X-Ray: Bitewings 1982 Disability Screening 1982 Alcohol/Substance Use Screening 1994 Family Planning (PISQ) 1997 HPV Vaccines (1 - Male 3-dose series) 1997 Pneumococcal Vaccine: Pediatrics (0 to 5 Years) and At-Risk Patients (6 to 49) Years (1 of 2 - PCV) 2001 Dental X-Ray: Full Mouth 02/15/2018 02/14/2015 DTaP/Tdap/Td Vaccines (7 - Td or Tdap) 06/03/2024 06/03/2014, 03/31/1996, 12/05/1986, Additional history exists SDOH Screening 10/06/2024 10/07/2023 COVID-19 Vaccine (2 - season) 2025 10/18/2020 Influenza Vaccine (#1) 2025 4, 04/19/1998, 04/19/1998 Depression Monitoring 03/03/2025 08/31/2024, 025 Tobacco Screening 04/26/2026 04/26/2025 Lipid Panel 04/26/2030 04/26/2025 Zoster Vaccines (1 of 2) 2032 RSV Patients and Patients Aged 60 years or older (1 - 1-dose 75+ series) 2057 IPV Vaccines Completed 12/05/1986, 06/1985, 11/06/1983, Additional history exists Hepatitis B Vaccines Completed 04/02/1998, 03/12/1997, 01/10/1997 HIV Screening Completed 04/09/2025, 11/05, 01/13/2023 Hepatitis C Screening Completed 04/09/2025 , 11/21/2024, 01/13/2023 HIB Vaccines Aged Out No longer [...] Routine 04/26/2025 4:10 PM EST Epigastric pain CREATININE, SERUM Routine 04/26/2025 2:1 4 PM EST UREA NITROGEN (BUN) Routine 04/26/2025 2 :14 PM EST LIPASE Routine 04/26/2025 2:14 PM EST Epigastric pain AMYLASE Routine 04/26/2025 2:14 PM EST Epigastric pain HEPATIC FUNCTION PANEL Routine 2:14 PM EST Epigastric pain TSH Routine 04/26/2025 2:14 PM EST Epigastric pain T4, FREE Routine 04/26/2025 2:14 PM EST Epigastric pain TSH W/REFLEX TO FT4 Routine 04/26/2025 2 :14 PM EST Dizziness VITAMIN D,25-OH,TOTAL,IA Routine 04/26/2025 2:14 PM EST Dizziness LIPID PANEL, STANDARD Routine 04/26/2025 2:14 PM EST Dizziness HEMOGLOBIN A1C Routine 04/26/2025 2:14 PM EST Dizziness COMPREHENSIVE METABOLIC PANEL Routine 04/26/2025 2:14 PM EST Dizziness CBC WITH AUTO DIFFERENTIAL Routine 04/26/2025 2:14 PM EST Dizziness HIV ANTIBODY/ANTIGEN ([facility]) Routine 04/09/2025 HEPATITIS C ANTIBODY ([facility]) Routine 04/09/2025 SYPHILIS ABS ([facility]) Routine 04/09/2025 CHLAMYDIA/GONORRHEA - URINE ([facility]) Routine 04/09/2025 CHLAMYDIA/GONORRHEA THROAT SWAB ([facility]) Routine 04/09/2025 PANORAMIC RADIOGRAPHIC IMAGE Routine 02/14/2015 12:00 AM EDT from Last 3 Months or Most Recently Relevant to Health Maintenance Results * ECG 12 lead (04/26/2025 4:10 PM EST) Vania Martinez DO - 04/26/2025 4:10 PM EST NSR at 58bpm, nml axis/intervals, no Q waves, no ST depression/elevation, TWF III Vania Emerson DO ECG ORDERABLES Final Result * (ABNORMAL) Vitamin D, 25-Hydroxy, Total, Immunoassay (04/26/2025 2:14 PM EST) [facility] Vitamin D 25-OH Total 23.0(L) >30 ng/mL [facility] Comment: Health Based Reference Values*< 20 ng/mL Itsxtjzbl58-31 ng/mL Insufficient> 30 ng/mL Sufficient*Rohith GALLEGOS. N Engl J Med. 2007;357:266-280There is no well-established upper level of normal vitamin Dlevels. Some laboratories use 50 ng/mL as an upper limit ofnormal. However, toxicity is patient-dependent and may occurat any level. Careful correlation with the patient'spresentation is necessary and, if there is concern forvitamin D toxicity, treatment should be consideredirrespective of the serum level.Care must be taken in interpreting Vitamin D results fromdifferent laboratories and methodologies. Published datademonstrated that results from patients undergoinghemodialysis may show a negative bias when tested withvarious automated 25-OH vitamin D assays when compared toLC-MS/MS.When testing samples from patients whose predominant form ofVitamin D is Vitamin D2, such as patients receiving VitaminD2 supplementation, results that are subtherapeutic shouldbe confirmed with another method such as LC-MS/MS. Blood Venous blood specimen / Unknown 04/26/2025 2:14 PM EST 04/26/2025 3:51 PM EST us Fay Dominguez MD LAB BLOOD ORDERABLES Final Result Performing Organization Address [facility] Co de Phone Number [facility] [address] [place] [phone] * TSH with Reflex to Free T4 (04/26/2025 2:14 PM EST) TSH reflex Free T4 1.66 0.32 - 4.0 uIU/mL [facility] Blood Venous blood specimen / Unknown 04/26/2025 2:14 PM EST 04/26/2025 3:51 PM EST us Fay Dominguez MD LAB BLOOD ORDERABLES Final Result Performing Organization Address [facility] Co de Phone Number [facility] [address] [place] [phone] * Creatinine, Serum (04/26/2025 2:14 PM EST) Creatinine, Serum 0.66 0.5 - 1.4 mg/dL [facility] Estimated Glomerular Filt Rate >60 [facility] Comment:Chronic Kidney Disea se: Estimated GFR < 60 mL/min/1.92w2Tcnhlm Kidney Disease: Estimated GFR < 15 mL/min/1.73m2 04/26/2025 2:14 PM EST 04/26/2025 3:51 PM EST us Generic External Data Provider LAB BLOOD ORDERAB LES Final Result Performing Organization Address [facility] Co de Phone Number [facility] [address] [place] [phone] * CBC auto differential (04/26/2025 2:14 PM EST) White Blood Count 7.1 4.8 - 10.8 X10*3/uL [facility] Red Blood Count 5.49 4.60 - 5.80 X10*6/uL [facility] Hemoglobin 15.9 14.0 - 18.0 g/dl [facility] Hematocrit 49.1 42.0 - 52.0 % [facility] Mean Corpuscular Volume 89.4 80.0 - 98.0 fL [facility] Mean Corpuscular Hemoglobin 29.0 27.0 - 33.0 pg [facility] Mean Corpuscular HGB Conc 32.4 31.0 - 36.0 g/dl [facility] Red Cell Distribution Width 12.9 11.0 - 16.0 % [facility] Platelet Count 281 160 - 400 X10*3/uL [facility] Mean Platelet Volume 10.7 9.4 - 12.4 fL [facility] Neutrophils Percent Auto 59.9 45 - 73 % [facility] Imm Gran Pct Auto 0.4 0.0 - 0.4 % [facility] Lymphocytes Percent Auto 30.4 20 - 40 % [facility] Monocytes Percent Auto 6.8 2 - 11 % [facility] Eosinophils Percent Auto 1.8 0 - 4 % [facility] Basophils Percent Auto 0.7 0 - 2 % [facility] NRBC Pct Auto 0.0 0.0 - 0.2 /100WBC [facility] Neutrophils Absolute Auto 4.3 2.0 - 8.3 x10*3/uL [facility] Imm Gran Abs Auto 0.03 0.00 - 0.03 X10*3/uL [facility] Lymphocytes Absolute Auto 2.2 1.2 - 4.9 X10*3/uL [facility] Monocytes Absolute Auto 0.5 0.1 - 1.2 X10*3/uL [facility] Eosinophils Absolute Auto 0.1 0.0 - 0.4 X10*3/uL [facility] Basophils Absolute Auto 0.1 0.0 - 0.2 X10*3/uL [facility] NRBC Abs Auto 0.000 0.0 - 0.012 X10*3/uL [facility] Blood Venous blood specimen / Unknown 04/26/2025 2:14 PM EST 04/26/2025 3:51 PM EST us Fay Dominguez MD LAB BLOOD ORDERABLES Final Result Performing Organization Address [facility]/ZIP Co de Phone Number [facility] [address] [place] [address] [phone] * BUN (Blood Urea Nitrogen) (04/26/2025 2:14 PM EST) Urea Nitrogen (BUN) 10 9 - 16 mg/dL [facility] 04/26/2025 2:14 PM EST 04/26/2025 3:51 PM EST us Generic External Data Provider LAB BLOOD ORDERAB LES Final Result Performing Organization Address [facility] Co de Phone Number [facility] [address] [place] [address] [phone] * TSH (04/26/2025 2:14 PM EST) Thyroid Stimulating Hormone 1.66 0.32 - 4.0 uIU/mL [facility] Comment:TSH 3rd Generation ( [facility]) Blood Venous blood specimen / Unknown 04/26/2025 2:14 PM EST 04/26/2025 3:51 PM EST us Vania Emerson DO LAB BLOOD ORDERABLES Final R esult Performing Organization Address [facility] Co de Phone Number [facility] [address] [place] [address] [phone] * T4, Free (04/26/2025 2:14 PM EST) Free T4 (Free Thyroxine) 0.94 0.71 - 1.85 ng/dL [facility] Blood Venous blood specimen / Unknown 04/26/2025 2:14 PM EST 04/26/2025 3:51 PM EST us Vania Ki DO LAB BLOOD ORDERABLES Final R esult Performing Organization Address City/[facility]/ZIP Co de Phone Number [facility] [address] [place] [address] [phone] * Lipase (04/26/2025 2:14 PM EST) Lipase 23 8 - 78 U/L [facility] Blood Venous blood specimen / Unknown 04/26/2025 2:14 PM EST 04/26/2025 3:51 PM EST us Vania Ki [facility] LAB BLOOD ORDERABLES Final R esult Performing Organization Address [facility] Co de Phone Number [facility] [address] [place] [address] [phone] * Hemoglobin A1c (04/26/2025 2:14 PM EST) Hemoglobin A1c 5.2 <6.0 % [facility] Comment:Hemoglobin A1C Refer ence Range Adults: 4.8 - 6.0 % Non diabetic: < 6.0 % Goal: < 7.0 %Additional Action Suggested: > 8.0 %Note: Hemoglobin A1c results are invalid for patients with abnormal amounts of HbF. Blood transfusions may impact the HbA1c concentration in the patient sample. Estimated Average Glucose 103 mg/dL [facility] Comment:eAG = Estimated ave rage glucose which is %A1C expressed asaverage glucose, using the formula of the S3P-MwfnseiPjoclvh Glucose study (ADAG), Diabetes Care, Vol.31,#8,2007 Blood Venous blood specimen / Unknown 04/26/2025 2:14 PM EST 04/26/2025 3:51 PM EST us Fay Dominguez MD LAB BLOOD ORDERABLES Final Result Performing Organization Address City/[facility]/ZIP Co de Phone Number [facility] [address] [place] [phone] * Amylase (04/26/2025 2:14 PM EST) Amylase 74 28 - 100 U/L [facility] Blood Venous blood specimen / Unknown 04/26/2025 2:14 PM EST 04/26/2025 3:51 PM EST Vania Mehtastellamarko DO LAB BLOOD ORDERABLES Final R esult Performing Organization Address City/[facility]/ZIP Co de Phone Number [facility] [address] [place] [address] [phone] * Hepatic Function Panel (04/26/2025 2:14 PM EST) Bilirubin, Direct 0.2 0.0 - 0.5 mg/dL [facility] Blood Venous blood specimen / Unknown 04/26/2025 2:14 PM EST 04/26/2025 3:51 PM EST Vania Ki DO LAB BLOOD ORDERABLES Final R esult Performing Organization Address City/[facility] Co de Phone Number [facility] [address] [place] [address] [phone] * (ABNORMAL) Lipid Panel, Standard (04/26/2025 2:14 PM EST) Triglycerides 120 <150 mg/dL [facility] Comment:Desirable Triglyceri de: less than 150 mg/dLBorderline High Triglyceride 150-199 mg/dLHigh Triglyceride: 200-499 mg/dLVery High Triglyceride: greater than or equal to 5OO mg/dL Cholesterol 175 <200 mg/dL [facility] Comment:Desirable Cholestero l: less than 200 mg/dLBorderline High Cholesterol: 200-239 mg/dLHigh Cholesterol: greater than 239 mg/dL LDL Cholesterol Calculated 109(H) <100 mg/dL [facility] Comment:Desirable LDL: less than 100 mg/dLNear Optimal/Above Optimal LDL: 110- 129 mg/dLBorderline High LDL: 130-159 mg/dLHigh LDL: 160-189 mg/dLVery High LDL: greater than or equal to 190 mg/dL HDL Cholesterol 42 >40 mg/dL [facility] Comment:Desirable HDL: great er than 40 mg/dL Note: This HDL assay may give artificially low results in patients with liver disease. Blood Venous blood specimen / Unknown 04/26/2025 2:14 PM EST 04/26/2025 3:51 PM EST us Fay Dominguez MD LAB BLOOD ORDERABLES Final Result [facility] [address] [place] [phone] * (ABNORMAL) Comprehensive Metabolic Panel (04/26/2025 2:14 PM EST) Sodium 142 135 - 145 mmol/L [facility] Potassium 3.9 3.3 - 5.1 mmol/L [facility] Chloride 110(H) 96 - 108 mmol/L [facility] Carbon Dioxide 28 22 - 29 mmol/L [facility] Anion Gap 8(L) 12 - 20 [facility] Urea Nitrogen (BUN) 10 9 - 16 mg/dL [facility] Creatinine, Serum 0.65 0.5 - 1.4 mg/dL [facility] Estimated Glomerular Filt Rate >60 [facility] Comment:Chronic Kidney Disea se: Estimated GFR < 60 mL/min/1.98p3Lxsosm Kidney Disease: Estimated GFR < 15 mL/min/1.73m2 Glucose 91 60 - 115 mg/dL [facility] Calcium 8.3(L) 8.4 - 10.2 mg/dL [facility] Bilirubin, Total 0.5 0.0 - 1.0 mg/dL [facility] Aspartate Amino Transferase 30 5 - 37 U/L [facility] Alanine Aminotransferase 26 0 - 40 U/L [facility] Total Protein 6.0(L) 6.5 - 8.0 g/dL [facility] Albumin Level 4.0 3.5 - 5.0 g/dL [facility] Alkaline Phosphatase 48 39 - 117 U/L [facility] Blood Venous blood specimen / Unknown 04/26/2025 2:14 PM EST 04/26/2025 3:51 PM EST Fay Dominguez MD LAB BLOOD ORDERABLES Final Result [facility] [address] [place] [phone] * Chlamydia/Gonorrhea Throat Swab ([facility]) (04/09/2025) Chlamydia Throat Swab Negative Gonorrhea Throat Swab Negative Swab 04/09/2025 Result [facility] Provider LAB MICROBIOLOGY - GENERA L ORDERABLES Final Result * Chlamydia/Gonorrhea, Urine ([facility]) (04/09/2025) Chlamydia, Urine Negative Negative, Indeterminate, None Detected, Invalid, Specimen unsatisfactory for evaluation, Weakly Positive, 2+ Gonorrhea, Urine Negative Negative, Indeterminate, None Detected, Invalid, Specimen unsatisfactory for evaluation, Weakly Positive, 2+ Urine 04/09/2025 Result [facility] Historical Provider LAB URINE ORDERABLES Juju l Result * Syphilis Antibodies ([facility]) (04/09/2025) Syphilis Abs Nonreactive Borderline, Nonreactive, Weakly Reactive, Inconclusive, Specimen unsatisfactory for evaluation Blood Venous blood specimen / Unknown 04/09/2025 Historical Provider LAB BLOOD ORDERABLES Juju l Result * Hepatitis C Antibody ([facility]) (04/09/2025) Hepatitis C Ab Nonreactive Blood 04/09/2025 Historical Provider LAB BLOOD ORDERABLES Juju l Result * HIV Ab/Ag ([facility]) (04/09/2025) HIV Ag/Ab Nonreactive Blood 04/09/2025 Historical Provider LAB BLOOD ORDERABLES Juju l Result from Last 3 Months Insurance [facility] [place] ST[place] AD[place] Care Teams Assistant Professor Relationship Specialty Start Date End Date Tammy Caceres FNP [address] [place] [address] PCP - General Family Medicine 09/13/24
--- OUTSIDE RECORDS SUMMARY | 2025-04-26 19:29 | XMS_ITS | Encounter Summary ---
Author Organization [employer] Address [address] [facility] 7t [place] [address] Care Team Providers Care Maintenance Truck Driver Name Role Phone Tammy Caceres [facility] Primary Care Provider [phone] Encounter Details Date Type Department Care Team (Latest Contact Info) Description 04/26/2025 Travel Social History Tobacco Use Types Packs/Day Years [...] documented as of this encounter Care Teams Maintenance Truck Driver Relationship Specialty Start Date End Date Tammy Caceres FNP [address] [place] [phone] PCP - General Family Medicine 09/13/24 documented as of this encounter
--- OUTSIDE RECORDS SUMMARY | 2025-04-26 19:29 | XMS_ITS | Encounter Summary ---
Author Organization [employer] Address [address] [place] [address] [place] [address] Care Team Providers Care Saturation Equipment Operator Name Role Phone Radha Weller MD Primary Care Provider + Fya Hensley MD Primary Care Provide r [facility] Primary Care Provider [phone] Encounter Details Date Type Department Care Team ([facility] st Contact Info) Description 06/09/2023 [facility] Health Information Management [address] [place] [address] Radha Weller MD [address] [place] [address] Social History Tobacco Use Types Packs/Day Years [...] on filedocumented in this encounter Care Teams Saturation Equipment Operator Relationship Specialty Start Date End Date Radha Weller MD [address] [place] [address] PCP - General Family Medicine 05/18/16 10/25/23 Fay Hensley MD [address] [place] [address] PCP - General Internal Medicine 10/26/23 09/12/24 [place] FNP [address] [place] [address] PCP - General Family Medicine 09/13/24 documented as of this encounter
--- OUTSIDE RECORDS SUMMARY | 2025-04-26 19:29 | XMS_ITS | Encounter Summary ---
Author Organization [employer] Address [address] [place] [address] 7 [place] [address] Care Team Providers Care Pillar Man Name Role Phone [facility] Primary Care Provider [phone] Reason for Visit * Reason Onset Date Comments Nurse Triage 04/26/2025 Encounter Details Date Type Department Care Team ([facility] Contact Info) Description 04/26/2025 Telephone [facility] [address], [place] [phone] [facility], [facility] [address] [place] [address] Nurse Triage Social History Tobacco Use Types Packs/Day Years [...] AM EDT documented as of this encounter Miscellaneous Notes * Addendum Note - Hoa Ludwig RN - 04/26/2025 4:29 PM ESTAddended by: HOA LUDWIG on: 04/26/2025 04:29 PM Modules accepted: Orders * Telephone Encounter - Hoa Ludwig RN - 04/26/2025 1:27 PM EST Assessment: Patient [facility] initially complaining of dizziness. Upon triage, pt complainingof chest pain, SOB, headache, blurred vision, dizziness, nausea. Pt reports onset of symptoms 25 minutes ago. Pt reports chest pain has improved from 8/10 upon arrival to 6/10 at time of triage. Pt reports blurred vision has resolved. Pt reports headache located at the back of their head rated at a9/10. Pt denies vomiting. Pt reports currently having chest pain, SOB, headache, dizziness, weakness, nausea. VS as follows (if applicable): HR 62 Resp 18 BP 130/88 left Arm; Device: Automatic Cuff Size: regular O2 sat 100 % on room air Pain level: 9, Location: headache Pain level: 6, Location: chest pain Allergies[1] Current Medications[2] Patient Active Problem List Diagnosis Date Noted Anxiety with depression 08/31/2024 Dizziness 08/31/2024 Lipoma of head 08/31/2024 Lipoma of neck 08/31/2024 Lipoma of upper extremity 08/31/2024 Right hand pain 08/31/2024 Anxiety about health 10/11/2023 Hemoptysis 10/11/2023 Weight loss 10/11/2023 Hematuria 10/11/2023 Gastrointestinal hemorrhage with melena 10/11/2023 Elevated blood pressure reading 10/11/2023 Dyspnea 06/03/2023 Microscopic hematuria 06/03/2023 Primary insomnia 06/03/2023 Chronic low back pain 08/12/2016 Posttraumatic stress disorder 08/12/2016 Substance abuse ([facility]) ([facility]) 08/12/2016 Anxiety state 11/17/2011 Asthma 11/17/2011 Contact dermatitis 11/17/2011 In Office Testing EKG Completed Plan of care: Report to . Hoa Ludwig RN [1] No Known Allergies [2] Current Outpatient Medications Medication Sig Dispense Refill albuterol 0.63 MG/3ML nebulizer solution Take 3 mL (0.63 mg) by nebulization every 6 (six) hours ifneeded for wheezing. 75 mL 11 albuterol 108 (90 Base) MCG/ACT inhaler Inhale 2 puffs every 4 (four) hours if needed for wheezing.18 g 11 diphenhydrAMINE (BENADryl) 25 MG tablet Take 1 tablet (25 mg) by mouth every 6 (six) hours if needed for itching. 30 tablet 1 Nebulizer misc Use with albuterol every 4-6 hours as needed 1 each 0 Respiratory Therapy Supplies (Nebulizer/Tubing/Mouthpiece) kit Use with nebulizer machine for albuterol 1 kit 1 triamcinolone (Kenalog) 0.1 % ointment Apply topically if needed in the morning and at bedtime for rash. 30 g 1 No current facility-administered medications for this visit. documented in this encounter Plan of Treatment Not on file documented as of this encounter Visit Diagnoses Not on filedocumented in this encounter Additional Health Concerns Assessment Noted Time PHQ-9 Depression Total Score: 24 025 2:56 PM EDT documented as of this encounter Care Teams Pillar Man Relationship Specialty Start Date End Date Tammy Caceres FNP [address] [place] [phone] PCP - General Family Medicine 09/13/24 documented as of this encounter
--- OUTSIDE RECORDS SUMMARY | 2025-04-26 19:29 | XMS_ITS | Encounter Summary ---
Author Organization [employer] Address [address] [facility] [address] [place] [address] Care Team Providers Care Tax Accounting Manager Name Role Phone Tammy Caceres [facility] Primary Care Provider Encounter Details Date Type Department Care Team ([facility] Contact Info) Description 04/26/2025 Orders Only GENERIC EXTERNAL DATA DEPARTMENT [...] Procedure Name Priority Date/Time Associated Diagnosis Comments CREATININE, SERUM Routine 04/26/2025 2:1 4 PM EST UREA NITROGEN (BUN) Routine 04/26/2025 2 :14 PM EST documented in this encounter Results * Creatinine, Serum (04/26/2025 2:14 PM EST) Creatinine, Serum 0.66 0.5 - 1.4 mg/dL [facility] Estimated Glomerular Filt Rate >60 [facility] Comment:Chronic Kidney Disea se: Estimated GFR < 60 mL/min/1.29d9Luyagm Kidney Disease: Estimated GFR < 15 mL/min/1.73m2 04/26/2025 2:14 PM EST 04/26/2025 3:51 PM EST us Generic External Data Provider LAB BLOOD ORDERAB LES Final Result Performing Organization Address [facility] Co de Phone Number [facility] [address] [place] [phone] * BUN (Blood Urea Nitrogen) (04/26/2025 2:14 PM EST) Urea Nitrogen (BUN) 10 9 - 16 mg/dL [facility] 04/26/2025 2:14 PM EST 04/26/2025 3:51 PM EST Generic External Data Provider LAB BLOOD ORDERAB LES Final Result Performing Organization Address [facility]/State/ZIP Co de Phone Number [facility] [address] [place] [address] [phone] documented in this encounter Visit Diagnoses Not on filedocumented in this encounter Additional Health Concerns Assessment Noted Time PHQ-9 Depression Total Score: 24 08/31/ 025 2:56 PM EDT documented as of this encounter Care Teams Tax Accounting Manager Relationship Specialty Start Date End Date Tammy Caceres FNP [address] [place] [phone] PCP - General Family Medicine 09/13/24 documented as of this encounter
[2025-04-27 08:07] LABS: HIV Num 1 0.05 S/CO (0.00-0.99); ~HepC Num1 0.09 S/CO (0.00-0.79); ~Hepatitis C Antibody Nonreactive (Nonreactive)
== END 2025-04-26 14:06 | disposition home or self-care (01) ==
LOC: HO.HHCL 14:05
PROVIDERS: PCP Internal Medicine; Visit Provider Family Medicine
DX: Z11.4 Encounter for screening for human immunodeficiency virus [HIV] (principal); Z11.59 Encounter for screening for other viral diseases; R42 Dizziness and giddiness; R10.13 Epigastric pain; R31.29 Other microscopic hematuria
CPT/HCPCS: 36415; 80053; 80061; 82150; 82248; 82306; 82565; 83036; 83690; 84439; 84443; 84520; 85025; 86803; 87389